=== PATIENT | female | born 1950 | race Hispanic/Latino ===

== ENCOUNTER 2017-05-22 18:13 | Emergency (ER) | payer MEDICARE ==
[~2017-05-22 18:13] MED LIST: AMLO5TAB2 PO; AMOX500C2 PO; ASPI-1181 PO; CHOL100034 PO; CLAR500T PO; DICY20TA11 PO; FURO20TA4 PO; INSLAN SQ; LISI40TA4 PO; LOVA20TA3 PO; PANT40TA25 PO
[2017-05-22 20:06] LABS: BASOPHILS % (AUTO) 0.3 % (0.0-5.0); EOSINOPHILS % (AUTO) 1.7 % (0.0-8.0); HEMATOCRIT 38.2 % (36-48); LYMPHOCYTES % (AUTO) 39.7 % (21.0-51.0); MEAN CORPUSCULAR HEMOGLOBIN 28.4 pg (27.0-33.0); MEAN CORPUSCULAR HGB CONC 34.3 g/dL (32.0-36.0); MEAN CORPUSCULAR VOLUME 82.9 fL (79-99); MONOCYTES % (AUTO) 5.6 % (3.0-13.0); NEUTROPHILS % (AUTO) 52.7 % (40.0-77.0); PLATELET COUNT (AUTO) 292 K/uL (130-400); RED CELL DISTRIBUTION WIDTH 13.2 % (11.0-15.5); WHITE BLOOD COUNT (AUTO) 10.1 K/uL (4.8-10.8)
[2017-05-22] MEDS ORDERED: ONDANSETRON ODT 4 MG TAB ONE (20:10)
[2017-05-22] MEDS ORDERED: BENZONATATE 100 MG CAPSULE PO ONE (20:11)
[2017-05-22 20:20] LABS: CREATININE 1.9 mg/dL (0.5-1.5); POTASSIUM 4.3 mmol/L (3.5-5.1)
[2017-05-22] MEDS ORDERED: INSULIN HUMULIN R 100 UNIT/ML 3ML ONE (21:20)
[2017-05-22] MEDS ORDERED: CLONIDINE HCL 0.1 MG TABLET ONE (21:57)
== END 2017-05-22 22:44 | disposition home or self-care (01) ==
LOC: EDH 18:13
DX: J20.9 Acute bronchitis, unspecified (principal); R51 Headache; J02.9 Acute pharyngitis, unspecified; N28.9 Disorder of kidney and ureter, unspecified; I25.10 Atherosclerotic heart disease of native coronary artery without angina pectoris; E11.9 Type 2 diabetes mellitus without complications; E78.5 Hyperlipidemia, unspecified; I10 Essential (primary) hypertension; Z72.0 Tobacco use
CPT/HCPCS: 36415; 70450; 71046; 80048; 82948; 85025; 87804 ×2; 96372; 99285; J1815

== ENCOUNTER 2017-05-26 15:18 | Inpatient (IN) | payer MEDICARE ==
[~2017-05-26] VITALS: Ht 152.4 cm; Wt 68.0 kg
[2017-05-26 15:49] LABS: BASOPHILS % (AUTO) 0.6 % (0.0-5.0); EOSINOPHILS % (AUTO) 1.8 % (0.0-8.0); HEMATOCRIT 36.9 % (36-48); LYMPHOCYTES % (AUTO) 34.6 % (21.0-51.0); MEAN CORPUSCULAR HEMOGLOBIN 27.9 pg (27.0-33.0); MEAN CORPUSCULAR HGB CONC 33.8 g/dL (32.0-36.0); MEAN CORPUSCULAR VOLUME 82.4 fL (79-99); MONOCYTES % (AUTO) 5.6 % (3.0-13.0); NEUTROPHILS % (AUTO) 57.4 % (40.0-77.0); PLATELET COUNT (AUTO) 283 K/uL (130-400); RED BLOOD CELL COUNT(AUTO) 4.48 MIL/uL (4.00-5.50); RED CELL DISTRIBUTION WIDTH 13.5 % (11.0-15.5); WHITE BLOOD COUNT (AUTO) 10.7 K/uL (4.8-10.8)
[2017-05-26] MEDS ORDERED: IPRATROPIUM/ALBUTEROL SULFATE 3 ML SOLUTION IH ONE (16:07)
[2017-05-26] MEDS ORDERED: ONDANSETRON HCL MDV 20ML 2 MG/ML VIAL ONE (16:08)
[2017-05-26] MEDS ORDERED: SODIUM CHLORIDE 0.9% 1000ML 1,000 ML IV ONE ×2 (16:08→17:01)
[2017-05-26] MEDS ORDERED: ACETAMINOPHEN 325 MG TAB ONE (16:08)
[2017-05-26] MEDS ORDERED: METHYLPREDNISOLONE SOD SUCC 40MG/ML 1ML ONE (16:08)
[2017-05-26 16:09] LABS: BILIRUBIN,TOTAL 0.1 mg/dL (0.2-1.0); CREATININE 2.5 mg/dL (0.5-1.5); POTASSIUM 5.3 mmol/L (3.5-5.1)
[2017-05-26] MEDS ORDERED: INSULIN HUMULIN R 100 UNIT/ML 3ML ONE ×2 (16:22→21:57)
[2017-05-26] MEDS ORDERED: AZITHROMYCIN 500MG+NS 250ML 250 ML IV ONE (17:01)
[2017-05-26 18:46] VITALS: BP 172/76
[2017-05-26 19:35] VITALS: BP 152/65
[2017-05-26] MEDS ORDERED: VALS320T16 PO (19:52)
[2017-05-26] MEDS ORDERED: GUAIFENESIN SUGAR-FREE 100 MG/5 ML UDCUP PO PRN (21:30)
[2017-05-26] MEDS ORDERED: ACETAMINOPHEN 325 MG TAB PO PRN (21:30)
[2017-05-26] MEDS ORDERED: LIDOCAINE HCL-MPF 1% 2ML VIAL IJ PRN (21:30)
[2017-05-26] MEDS ORDERED: POTASSIUM CHLORIDE 20 MEQ ERTAB PO PRN (21:30)
[2017-05-26] MEDS ORDERED: POTASSIUM CHLORIDE 20MEQ/100ML 100 ML IV PRN (21:30)
[2017-05-26] MEDS ORDERED: POTASSIUM CHLORIDE 10% ELIXIR 20 MEQ/15 ML UDCUP PO PRN (21:30)
[2017-05-26] MEDS ORDERED: GLUCAGON 1MG KIT 1 MG ML IM PRN (21:30)
[2017-05-26] MEDS ORDERED: DEXTROSE 50%-WATER 50 ML DISP.SYRIN IV PRN (21:30)
[2017-05-26] MEDS ORDERED: ONDANSETRON HCL MDV 20ML 2 MG/ML VIAL IVP PRN (21:30)
[2017-05-26] MEDS ORDERED: SODIUM CHLORIDE 0.9% 1000ML 1,000 ML IV SCH (21:30)
[2017-05-26] MEDS: INSULIN GLARGINE 100 UNITS/ML 10 ML VIAL SQ SCH (22:00)
[2017-05-26] MEDS: INSULIN HUMULIN R 100 UNIT/ML 3ML SQ SCH (22:00)
[2017-05-26 23:35] VITALS: BP 180/68
[2017-05-26] MEDS: IPRATROPIUM/ALBUTEROL SULFATE 3 ML SOLUTION IH SCH (23:45)
[2017-05-27 03:55] VITALS: BP 157/68
[2017-05-27] MEDS ORDERED: HYDRALAZINE HCL 20 MG/ML VIAL IV PRN ×2 (04:15→10:15)
[2017-05-27] MEDS: IPRATROPIUM/ALBUTEROL SULFATE 3 ML SOLUTION IH SCH ×3 (05:14→18:40)
[2017-05-27 06:08] LABS: HEMATOCRIT 33.9 % (36-48); MEAN CORPUSCULAR HEMOGLOBIN 29.1 pg (27.0-33.0); MEAN CORPUSCULAR HGB CONC 35.4 g/dL (32.0-36.0); MEAN CORPUSCULAR VOLUME 82.1 fL (79-99); PLATELET COUNT (AUTO) 269 K/uL (130-400); RED BLOOD CELL COUNT(AUTO) 4.12 MIL/uL (4.00-5.50); RED CELL DISTRIBUTION WIDTH 12.9 % (11.0-15.5)
[2017-05-27 06:23] LABS: HEMOGLOBIN A1C 10.2 % (4.0-6.0)
[2017-05-27 06:33] LABS: CREATININE 2.3 mg/dL (0.5-1.5); POTASSIUM 4.4 mmol/L (3.5-5.1)
[2017-05-27] MEDS: INSULIN HUMULIN R 100 UNIT/ML 3ML SQ SCH ×4 (07:05→21:27)
[2017-05-27] MEDS ORDERED: INSULIN R PO SS1 SQ SCH (07:30)
[2017-05-27 08:16] VITALS: BP 162/60
[2017-05-27] MEDS: METHYLPREDNISOLONE SOD SUCC 40MG/ML 1ML IVP SCH ×3 (08:56→21:19)
[2017-05-27] MEDS: FUROSEMIDE 20 MG TABLET PO SCH (08:56)
[2017-05-27] MEDS: ASPIRIN 81 MG EC TAB PO SCH (08:56)
[2017-05-27] MEDS ORDERED: VALSARTAN 320 MG PO SCH (09:00)
[2017-05-27] MEDS: ***HM***Cholecalciferol (Vitamin D3) 1,000 UNIT PO SCH (09:00)
[2017-05-27] MEDS: INSULIN GLARGINE 100 UNITS/ML 10 ML VIAL SQ SCH ×2 (09:02→17:30)
[2017-05-27] MEDS ORDERED: ONDANSETRON HCL 4 MG/2 ML VIAL IV PRN (10:15)
[2017-05-27] MEDS ORDERED: MORPHINE SULFATE 4 MG/1ML SYG IVP PRN (10:15)
[2017-05-27] MEDS ORDERED: LACTULOSE 20 GM/30 ML UDCUP PO PRN (10:15)
[2017-05-27] MEDS ORDERED: MORPHINE SULFATE 2 MG/ML 1ML SYG IVP PRN (10:15)
[2017-05-27] MEDS ORDERED: GUAIFENESIN-DM 200/20 MG 10 ML PO PRN (10:15)
[2017-05-27] MEDS ORDERED: ACETAMINOPHEN 325 MG TAB PO PRN ×2 (10:15)
[2017-05-27] MEDS ORDERED: MAG HYDROX/AL HYDROX/SIMETH ES 30 ML SUSP UDCUP PO PRN (10:15)
[2017-05-27] MEDS ORDERED: INSULIN GLARGINE 100 UNITS/ML 10 ML VIAL SQ ONE (10:15)
[2017-05-27] MEDS ORDERED: NITROGLYCERIN 0.4 MG SL TAB SL PRN (10:15)
[2017-05-27] MEDS ORDERED: ACETAMINOPHEN-CODEINE 300/30MG TAB PO PRN ×2 (10:15)
[2017-05-27 12:08] VITALS: BP 197/75
[2017-05-27] MEDS: SODIUM CHLORIDE 0.9% 1000ML 1,000 ML IV SCH ×4 (12:26→17:28)
[2017-05-27] MEDS ORDERED: AZITHROMYCIN 500MG+NS 250ML 250 ML IV SCH (16:00)
[2017-05-27 17:01] VITALS: BP 185/60
[2017-05-27 19:40] VITALS: BP 153/70
[2017-05-27] MEDS ORDERED: INSULIN GLARGINE 100 UNITS/ML 10 ML VIAL SQ SCH (21:00)
[2017-05-27] MEDS ORDERED: LOVASTATIN 20 MG PO SCH (21:00)
[2017-05-27] MEDS ORDERED: AMLODIPINE BESYLATE 5 MG TAB PO SCH (21:00)
[2017-05-27 23:40] VITALS: BP 173/70
[2017-05-28] MEDS: IPRATROPIUM/ALBUTEROL SULFATE 3 ML SOLUTION IH SCH ×3 (00:33→12:00)
[2017-05-28 03:40] VITALS: BP 148/69
[2017-05-28 05:26] LABS: CREATININE 1.8 mg/dL (0.5-1.5); POTASSIUM 4.2 mmol/L (3.5-5.1)
[2017-05-28 05:27] LABS: HEMATOCRIT 33.3 % (36-48); MEAN CORPUSCULAR HEMOGLOBIN 27.7 pg (27.0-33.0); MEAN CORPUSCULAR HGB CONC 34.4 g/dL (32.0-36.0); MEAN CORPUSCULAR VOLUME 80.5 fL (79-99); PLATELET COUNT (AUTO) 265 K/uL (130-400); RED BLOOD CELL COUNT(AUTO) 4.14 MIL/uL (4.00-5.50); RED CELL DISTRIBUTION WIDTH 13.3 % (11.0-15.5); WHITE BLOOD COUNT (AUTO) 18.8 K/uL (4.8-10.8)
[2017-05-28] MEDS: INSULIN HUMULIN R 100 UNIT/ML 3ML SQ SCH ×2 (07:47→11:30)
[2017-05-28 08:00] VITALS: BP 162/56
[2017-05-28] MEDS: ASPIRIN 81 MG EC TAB PO SCH (08:13)
[2017-05-28] MEDS: METHYLPREDNISOLONE SOD SUCC 40MG/ML 1ML IVP SCH (08:13)
[2017-05-28] MEDS: FUROSEMIDE 20 MG TABLET PO SCH (08:13)
[2017-05-28] MEDS: ***HM***Cholecalciferol (Vitamin D3) 1,000 UNIT PO SCH (08:17)
[2017-05-28] MEDS: INSULIN GLARGINE 100 UNITS/ML 10 ML VIAL SQ SCH (08:17)
[2017-05-28] MEDS ORDERED: ENOXAPARIN SODIUM 40 MG/0.4 ML SYRINGE SQ SCH (09:00)
[2017-05-28] MEDS ORDERED: ENOXAPARIN SODIUM 30 MG/0.3 ML SQ SCH (09:00)
[2017-05-28 11:30] VITALS: BP 172/78
== END 2017-05-28 12:05 | disposition home or self-care (01) | DRG 191 ==
LOC: EDH 15:18 → OBSVTOIN 16:40 → EDHIP 16:40 → 4CH 18:37
PROVIDERS: ADMIT Internal Medicine; ATTEND Internal Medicine
DX: J44.1 Chronic obstructive pulmonary disease with (acute) exacerbation (principal); E44.1 Mild protein-calorie malnutrition; E11.22 Type 2 diabetes mellitus with diabetic chronic kidney disease; E11.65 Type 2 diabetes mellitus with hyperglycemia; E78.5 Hyperlipidemia, unspecified; E86.0 Dehydration; F17.210 Nicotine dependence, cigarettes, uncomplicated; I12.9 Hypertensive chronic kidney disease with stage 1 through stage 4 chronic kidney disease, or unspecified chronic kidney disease; I25.10 Atherosclerotic heart disease of native coronary artery without angina pectoris; N18.9 Chronic kidney disease, unspecified
CPT/HCPCS: 36415; 71045; 71046; 80048; 80053; 82550; 82948; 83036; 83690; 83880; 84484; 85025; 85027; 87804; 93005; 94640; 94664; J0360; J0456; J1650; J1815; J2920; J7030

== ENCOUNTER 2017-12-26 07:22 | Emergency (ER) | payer MEDICARE ==
[~2017-12-26 07:22] MED LIST changes: -AMLO5TAB2 PO; +AMLO5TAB7 PO; -AMOX500C2 PO; -CLAR500T PO; -DICY20TA11 PO; -LISI40TA4 PO; -PANT40TA25 PO; +VALS320T16 PO
[2017-12-26] MEDS ORDERED: METHYLPREDNISOLONE SOD SUCC 125MG/2ML VIAL ONE (07:54)
[2017-12-26] MEDS ORDERED: IPRATROPIUM/ALBUTEROL SULFATE 3 ML SOLUTION IH ONE (07:59)
== END 2017-12-26 10:01 | disposition home or self-care (01) ==
LOC: EDH 07:22
DX: J40 Bronchitis, not specified as acute or chronic (principal); I25.10 Atherosclerotic heart disease of native coronary artery without angina pectoris; E78.5 Hyperlipidemia, unspecified; I10 Essential (primary) hypertension; E10.9 Type 1 diabetes mellitus without complications; Z72.0 Tobacco use
CPT/HCPCS: 71046; 94640; 96372; 99284; J2930

== ENCOUNTER 2018-09-08 00:22 | Emergency (ER) | payer MEDICARE ==
[~2018-09-08 00:22] MED LIST changes: -AMLO5TAB7 PO; +AMLO5TAB9 PO
[2018-09-08] MEDS ORDERED: PANTOPRAZOLE 40 MG/VIAL IVP ONE (00:23)
[2018-09-08 00:47] LABS: APPEARANCE,URINE Cloudy (CLEAR); BILIRUBIN,URINE Negative (NEGATIVE); COLOR,URINE Yellow (YELLOW); GLUCOSE, URINE (UA) 250 mg/dL (NEGATIVE); KETONES,URINE Negative (NEGATIVE); LEUKOCYTE ESTERASE ,URINE Large (NEGATIVE); NITRATE,URINE Negative (NEGATIVE); OCCULT BLOOD,URINE Trace (NEGATIVE); PROTEIN,URINE 300 mg/dL (NEGATIVE); UROBILINOGEN,URINE 0.2 mg/dL (0.2-1.0)
[2018-09-08] MEDS ORDERED: SODIUM CHLORIDE 0.9% 1000ML 1,000 ML IV ONE (00:49)
[2018-09-08] MEDS ORDERED: FAMOTIDINE/PF 20 MG/2 ML VIAL IV ONE (00:49)
[2018-09-08] MEDS ORDERED: ONDANSETRON HCL 4 MG/2 ML VIAL ONE (00:49)
[2018-09-08] MEDS ORDERED: METOCLOPRAMIDE 10 MG/2 ML VIAL ONE (00:49)
[2018-09-08] MEDS ORDERED: SODIUM CHLORIDE 0.9% 500ML 500 ML IV ONE (00:50)
[2018-09-08 00:55] LABS: BASOPHILS % (AUTO) 0.2 % (0.0-5.0); EOSINOPHILS % (AUTO) 0.7 % (0.0-8.0); HEMATOCRIT 35.7 % (36-48); LYMPHOCYTES % (AUTO) 39.3 % (21.0-51.0); MEAN CORPUSCULAR HEMOGLOBIN 28.3 pg (27.0-33.0); MEAN CORPUSCULAR HGB CONC 34.2 g/dL (32.0-36.0); MEAN CORPUSCULAR VOLUME 82.8 fL (79-99); NEUTROPHILS % (AUTO) 54.8 % (40.0-77.0); PLATELET COUNT (AUTO) 268 K/uL (130-400); RED BLOOD CELL COUNT(AUTO) 4.31 MIL/uL (4.00-5.50); RED CELL DISTRIBUTION WIDTH 12.9 % (11.0-15.5); WHITE BLOOD COUNT (AUTO) 12.3 K/uL (4.8-10.8)
[2018-09-08 00:58] LABS: BACTERIA,URINE Moderate /HPF (None Seen); MUCUS,URINE Few LPF (None Seen); RBC,URINE 0-1 /HPF (0-1); SQUAMOUS EPITHELIAL CELL,UR Few /HPF (0-2); WBC,URINE 51-100 /HPF (0-1)
[2018-09-08 01:02] LABS: CREATININE 2.2 mg/dL (0.5-1.5); POTASSIUM 4.7 mmol/L (3.5-5.1)
[2018-09-08 01:07] LABS: ALBUMIN 3.3 g/dL (3.5-5.0); BILIRUBIN,TOTAL 0.2 mg/dL (0.2-1.0); TOTAL PROTEIN, SERUM 7.3 g/dL (6.0-8.3)
[2018-09-08 01:08] LABS: INR 0.95 (0.85-1.15); PARTIAL THROMBOPLASTIN TIME 26.1 SEC (26.3-35.5)
[2018-09-08 01:14] LABS: B-TYPE NATRIURETIC PEPTIDE 87 pg/mL (0-100)
[2018-09-08] MEDS ORDERED: CEFTRIAXONE SODIUM 2 GM VIAL ONE (01:21)
[2018-09-08] MEDS ORDERED: LACTULOSE 20 GM/30 ML UDCUP ONE (01:39)
== END 2018-09-08 01:52 | disposition home or self-care (01) ==
LOC: EDH 00:22
DX: N39.0 Urinary tract infection, site not specified (principal); K59.00 Constipation, unspecified; R11.10 Vomiting, unspecified; E11.9 Type 2 diabetes mellitus without complications; E78.5 Hyperlipidemia, unspecified; I10 Essential (primary) hypertension; I25.10 Atherosclerotic heart disease of native coronary artery without angina pectoris; Z98.890 Other specified postprocedural states; Z72.0 Tobacco use
CPT/HCPCS: 36415; 74176; 80053; 81001; 82550; 83605; 83690; 83880; 84484; 85025; 85610; 85730; 93005; 96361; 96374; 96375 ×2; 99285; C9113; J0696; J2405; J2765; J3490; J7030; J7040

== ENCOUNTER 2018-10-31 14:54 | Emergency (ER) | payer MEDICARE ==
[~2018-10-31 14:54] MED LIST changes: +AEC81 PO; +AMOX500C2 PO; -ASPI-1181 PO; -CHOL100034 PO; +CLOP75TA32 PO; +INSNOV SQ; +LISI40TA4 PO; -LOVA20TA3 PO; +LOVA40TA2 PO; -VALS320T16 PO
[2018-10-31 16:07] LABS: APPEARANCE,URINE Clear (CLEAR); BILIRUBIN,URINE Negative (NEGATIVE); COLOR,URINE Yellow (YELLOW); GLUCOSE, URINE (UA) Negative (NEGATIVE); KETONES,URINE Negative (NEGATIVE); LEUKOCYTE ESTERASE ,URINE Trace (NEGATIVE); NITRATE,URINE Negative (NEGATIVE); OCCULT BLOOD,URINE Negative (NEGATIVE); PROTEIN,URINE 300 mg/dL (NEGATIVE); UROBILINOGEN,URINE 0.2 mg/dL (0.2-1.0)
[2018-10-31 16:36] LABS: BASOPHILS % (AUTO) 0.3 % (0.0-5.0); EOSINOPHILS % (AUTO) 1.1 % (0.0-8.0); HEMATOCRIT 31.5 % (36-48); LYMPHOCYTES % (AUTO) 34.6 % (21.0-51.0); MEAN CORPUSCULAR HEMOGLOBIN 28.8 pg (27.0-33.0); MEAN CORPUSCULAR HGB CONC 34.5 g/dL (32.0-36.0); MEAN CORPUSCULAR VOLUME 83.5 fL (79-99); MONOCYTES % (AUTO) 6.2 % (3.0-13.0); NEUTROPHILS % (AUTO) 57.8 % (40.0-77.0); PLATELET COUNT (AUTO) 267 K/uL (130-400); RED BLOOD CELL COUNT(AUTO) 3.77 MIL/uL (4.00-5.50); RED CELL DISTRIBUTION WIDTH 13.1 % (11.0-15.5); WHITE BLOOD COUNT (AUTO) 8.7 K/uL (4.8-10.8)
[2018-10-31 16:46] LABS: CREATININE 2.9 mg/dL (0.5-1.5); POTASSIUM 5.2 mmol/L (3.5-5.1)
[2018-10-31 16:49] LABS: BACTERIA,URINE Few /HPF (None Seen); RBC,URINE 0-1 /HPF (0-1)
[2018-10-31 16:50] LABS: SQUAMOUS EPITHELIAL CELL,UR Few /HPF (0-2)
[2018-10-31 16:51] LABS: ALBUMIN 3.6 g/dL (3.5-5.0); BILIRUBIN,TOTAL 0.3 mg/dL (0.2-1.0)
== END 2018-10-31 17:03 | disposition home or self-care (01) ==
LOC: EDH 14:54
DX: N39.0 Urinary tract infection, site not specified (principal); M79.3 Panniculitis, unspecified; N32.89 Other specified disorders of bladder; I25.10 Atherosclerotic heart disease of native coronary artery without angina pectoris; E78.5 Hyperlipidemia, unspecified; I10 Essential (primary) hypertension; E11.9 Type 2 diabetes mellitus without complications; Z87.891 Personal history of nicotine dependence; Z98.890 Other specified postprocedural states
CPT/HCPCS: 36415; 74176; 80053; 81001; 83690; 85025

== ENCOUNTER → 2019-01-27 | Outpatient (CLI) | payer MEDICARE | END | disposition home or self-care (01) | LOC: SHCH 14:39 | PROVIDERS: ATTEND Internal Medicine Cardiovascular Disease | DX: I51.7 Cardiomegaly (principal); I10 Essential (primary) hypertension | CPT/HCPCS: 93306 ==

== ENCOUNTER 2020-10-08 13:39 | Emergency (ER) | payer MEDICARE ==
[~2020-10-08] VITALS: Ht 154.9 cm; Wt 65.8 kg
[~2020-10-08 13:39] MED LIST changes: +AMLO-257 PO; -AMLO5TAB9 PO; -LISI40TA4 PO; +LISI40TA9 PO
[2020-10-08 13:41] VITALS: BP 166/71
[2020-10-08] MEDS ORDERED: MORPHINE 2 MG SYG IVP SCH (14:30)
[2020-10-08] MEDS ORDERED: ONDANSETRON 4MG INJ IVP SCH (14:30)
[2020-10-08 14:43] LABS: APPEARANCE,URINE CLOUDY (CLEAR); BASOPHILS % (AUTO) 0.3 % (0.0-5.0); BILIRUBIN,URINE NEGATIVE (NEGATIVE); COLOR,URINE YELLOW (YELLOW); EOSINOPHILS % (AUTO) 0.5 % (0.0-8.0); GLUCOSE, URINE (UA) NEGATIVE (NEGATIVE); HEMATOCRIT 26.8 % (36-48); KETONES,URINE 5 mg/dL (NEGATIVE); LEUKOCYTE ESTERASE ,URINE MODERATE (NEGATIVE); LYMPHOCYTES % (AUTO) 24.1 % (21.0-51.0); MEAN CORPUSCULAR HEMOGLOBIN 27.2 pg (27.0-33.0); MEAN CORPUSCULAR HGB CONC 32.5 g/dL (32.0-36.0); MEAN CORPUSCULAR VOLUME 83.8 fL (79-99); MONOCYTES % (AUTO) 5.5 % (3.0-13.0); NEUTROPHILS % (AUTO) 69.1 % (40.0-77.0); NITRATE,URINE NEGATIVE (NEGATIVE); OCCULT BLOOD,URINE TRACE-INTACT (NEGATIVE); PH,URINE 5.5 (5.0-8.0); PLATELET COUNT (AUTO) 338 K/uL (130-400); PROTEIN,URINE >=300 mg/dL (NEGATIVE); RED CELL DISTRIBUTION WIDTH 14.4 % (11.0-15.5); UROBILINOGEN,URINE 0.2 mg/dL (0.2-1.0); WHITE BLOOD COUNT (AUTO) 8.6 K/uL (4.8-10.8)
[2020-10-08 14:53] LABS: CARBON DIOXIDE 23 mmol/L (21-32); CHLORIDE 101 mmol/L (101-111); CREATININE 4.1 mg/dL (0.5-1.5); GLOMERULAR FILTR. RATE CALC 11 mL/min (>60); GLUCOSE,RANDOM 208 mg/dL (70-105); POTASSIUM 5.5 mmol/L (3.5-5.1); SODIUM SERUM 137 mmol/L (136-145); UREA NITROGEN, BLOOD 44 mg/dL (7-18)
[2020-10-08 14:57] LABS: ALANINE AMINOTRANSFERASE 10 U/L (12-78); ASPARTATE AMINOTRANSFERASE 16 U/L (10-37); BILIRUBIN,TOTAL 0.3 mg/dL (0.2-1.0); TOTAL PROTEIN, SERUM 7.3 g/dL (6.0-8.3)
[2020-10-08 14:58] LABS: LIPASE < 50 U/L (114-286)
[2020-10-08 15:04] LABS: BACTERIA,URINE Many /HPF (None Seen); MUCUS,URINE Few LPF (None Seen); SQUAMOUS EPITHELIAL CELL,UR Few /HPF (0-2); WBC,URINE 26-50 /HPF (0-1)
[2020-10-08] MEDS ORDERED: PHENAZOPYRIDINE HCL 200 MG TABLET PO ONE (15:30)
[2020-10-08] MEDS ORDERED: KAYEXALATE 15GM/60ML PO ONE (15:30)
[2020-10-08] MEDS ORDERED: CEFTRIAXONE 1G VIAL IVP ONE (15:30)
[2020-10-08] MEDS ORDERED: DIATR MEGLU/DIATRIZOATE SODIUM 30 ML BOTTLE ONE (16:01)
[2020-10-08 17:07] VITALS: BP 220/87
[2020-10-08] MEDS ORDERED: HYDRALAZINE 20MG/ML VIAL IV ONE (17:30)
[2020-10-08] MEDS ORDERED: MORPHINE 2 MG SYG IVP ONE (17:30)
[2020-10-08 18:39] VITALS: BP 190/69
[2020-10-08] MEDS ORDERED: CEPH500B PO (18:53)
[2020-10-08] MEDS ORDERED: DICY20TA2 PO (18:53)
[2020-10-08] MEDS ORDERED: ONDA4TAB10 PO (18:53)
[2020-10-08] MEDS ORDERED: HYDRALAZINE 20MG/ML VIAL IV SCH (19:00)
[2020-10-08] MEDS ORDERED: DICYCLOMINE HCL 10 MG/5 ML ML PO SCH (19:00)
[2020-10-08] MEDS ORDERED: DICYCLOMINE HCL 10 MG/5 ML ML PO ONE ×3 (19:00→20:01)
[2020-10-08] MEDS ORDERED: LIDOCAINE HCL 2% VISCOUS 15 ML UDCUP PO ONE (19:00)
[2020-10-08] MEDS ORDERED: MAG/ALUM/SIMETH 30 ML UDCUP PO ONE (19:00)
[2020-10-08] MEDS ORDERED: COMPOUND PO MISCELLANEOUS 1 EACH MISC MISC PRN (19:30)
[2020-10-08] MEDS ORDERED: LIDOCAINE HCL 2% VISCOUS 15 ML UDCUP ONE (19:59)
[2020-10-08] MEDS ORDERED: MAG/ALUM/SIMETH 30 ML UDCUP ONE (20:00)
[2020-10-08] MEDS ORDERED: LIDO 2% VISC 30ML+MAG/AL/SIMETH 30ML+DICYCLOMINE 20MG 10ML PO SCH ×3 (20:00)
[2020-10-08 20:22] VITALS: BP 177/62
== END 2020-10-08 20:35 | disposition home or self-care (01) ==
LOC: EDH 13:39
DX: N39.0 Urinary tract infection, site not specified (principal); K29.70 Gastritis, unspecified, without bleeding; I10 Essential (primary) hypertension; E11.9 Type 2 diabetes mellitus without complications; E78.5 Hyperlipidemia, unspecified; Z79.4 Long term (current) use of insulin; Z79.82 Long term (current) use of aspirin; Z79.899 Other long term (current) drug therapy; Z90.49 Acquired absence of other specified parts of digestive tract
CPT/HCPCS: 36415; 71045; 74176 ×2; 80053; 81001; 83690; 84484; 85025; 87077; 87088; 87186; 93005; 96374; 96375; 96376; 99285; J0360 ×2; J0696; J2405; Q9963

== ENCOUNTER 2020-10-12 21:01 | Inpatient (IN) | payer MEDICARE ==
[~2020-10-12] VITALS: Ht 154.9 cm; Wt 71.7 kg
[~2020-10-12 21:01] MED LIST changes: +CEPH500B PO; +DICY20TA2 PO; +ONDA4TAB10 PO
[2020-10-12 21:03] VITALS: BP 192/81
[2020-10-12 21:34] LABS: BASOPHILS % (AUTO) 0.4 % (0.0-5.0); EOSINOPHILS % (AUTO) 0.6 % (0.0-8.0); HEMATOCRIT 27.4 % (36-48); LYMPHOCYTES % (AUTO) 18.2 % (21.0-51.0); MEAN CORPUSCULAR HEMOGLOBIN 27.2 pg (27.0-33.0); MEAN CORPUSCULAR HGB CONC 32.1 g/dL (32.0-36.0); MEAN CORPUSCULAR VOLUME 84.8 fL (79-99); MONOCYTES % (AUTO) 5.2 % (3.0-13.0); NEUTROPHILS % (AUTO) 74.7 % (40.0-77.0); PLATELET COUNT (AUTO) 356 K/uL (130-400); RED BLOOD CELL COUNT(AUTO) 3.23 MIL/uL (4.00-5.50); RED CELL DISTRIBUTION WIDTH 14.5 % (11.0-15.5); WHITE BLOOD COUNT (AUTO) 9.7 K/uL (4.8-10.8)
[2020-10-12 21:49] LABS: BILIRUBIN,TOTAL 0.3 mg/dL (0.2-1.0); TOTAL PROTEIN, SERUM 7.2 g/dL (6.0-8.3)
[2020-10-12] MEDS ORDERED: NITROGLYCERIN 1GM OINT 1 INCH/1GM TD ONE (22:30)
[2020-10-12] MEDS ORDERED: FUROSEMIDE 40MG VIAL IV ONE (22:30)
[2020-10-12] MEDS ORDERED: AZITHROMYCIN 250 MG TABLET PO ONE (22:30)
[2020-10-12] MEDS ORDERED: CEFTRIAXONE 1G VIAL IVP ONE (22:30)
[2020-10-12 22:36] LABS: APPEARANCE,URINE Cloudy (CLEAR); BILIRUBIN,URINE Negative (NEGATIVE); COLOR,URINE Yellow (YELLOW); GLUCOSE, URINE (UA) Negative (NEGATIVE); KETONES,URINE Trace mg/dL (NEGATIVE); LEUKOCYTE ESTERASE ,URINE Moderate (NEGATIVE); NITRATE,URINE Negative (NEGATIVE); OCCULT BLOOD,URINE Large (NEGATIVE); PH,URINE 5.5 (5.0-8.0); PROTEIN,URINE 300 mg/dL (NEGATIVE); UROBILINOGEN,URINE 0.2 mg/dL (0.2-1.0)
[2020-10-12] MEDS ORDERED: ONDANSETRON 4MG INJ IV PRN (23:00)
[2020-10-12] MEDS ORDERED: LACTULOSE 20 GM/30 ML UDCUP PO PRN (23:00)
[2020-10-12 23:04] LABS: RBC,URINE 26-50 /HPF (0-1)
[2020-10-12 23:05] LABS: BACTERIA,URINE Many /HPF (None Seen); SQUAMOUS EPITHELIAL CELL,UR Few /HPF (0-2); WBC,URINE 51-100 /HPF (0-1)
[2020-10-12 23:25] LABS: HEMOGLOBIN A1C 7.9 % (4.0-6.0)
[2020-10-12 23:26] LABS: MAGNESIUM 2.9 mg/dL (1.80-2.40)
[2020-10-12] MEDS: CEFTRIAXONE 1G VIAL IVP SCH (23:30)
[2020-10-13] VITALS (13 sets, daily range): BP systolic 156–203; BP diastolic 39–111
[2020-10-13] MEDS ORDERED: FUROSEMIDE 40MG VIAL ONE (00:06)
[2020-10-13] MEDS: METOPROLOL TARTRATE 25 MG TAB PO SCH ×3 (00:21→21:20)
[2020-10-13] MEDS: ATORVASTATIN 20 MG TABLET PO SCH ×2 (00:21→21:20)
[2020-10-13] MEDS: ASPIRIN 81 MG EC TAB PO SCH ×2 (00:21→08:30)
[2020-10-13] MEDS ORDERED: NITROGLYCERIN 1GM OINT 1 INCH/1GM TD ONE (00:26)
[2020-10-13] MEDS ORDERED: AZITHROMYCIN 250 MG TABLET PO ONE (00:26)
[2020-10-13 06:28] LABS: BASOPHILS % (AUTO) 0.3 % (0.0-5.0); EOSINOPHILS % (AUTO) 0.9 % (0.0-8.0); HEMATOCRIT 28.4 % (36-48); LYMPHOCYTES % (AUTO) 16.4 % (21.0-51.0); MEAN CORPUSCULAR HEMOGLOBIN 26.6 pg (27.0-33.0); MEAN CORPUSCULAR HGB CONC 31.3 g/dL (32.0-36.0); MEAN CORPUSCULAR VOLUME 84.8 fL (79-99); MONOCYTES % (AUTO) 4.5 % (3.0-13.0); NEUTROPHILS % (AUTO) 76.9 % (40.0-77.0); PLATELET COUNT (AUTO) 407 K/uL (130-400); RED BLOOD CELL COUNT(AUTO) 3.35 MIL/uL (4.00-5.50); RED CELL DISTRIBUTION WIDTH 14.5 % (11.0-15.5); WHITE BLOOD COUNT (AUTO) 9.8 K/uL (4.8-10.8)
[2020-10-13 06:46] LABS: POTASSIUM 5.6 mmol/L (3.5-5.1)
[2020-10-13] MEDS: INSULIN HUMULIN R 100 UNIT/ML 3ML SQ SCH ×4 (08:30→21:20)
[2020-10-13] MEDS: PANTOPRAZOLE 40 MG TAB DR PO SCH (08:30)
[2020-10-13] MEDS: FUROSEMIDE 40MG VIAL IVP SCH ×2 (08:30→21:20)
[2020-10-13] MEDS: HYDRALAZINE 20MG/ML VIAL IV PRN ×2 (12:53→22:16)
[2020-10-13] MEDS ORDERED: KAYEXALATE 15GM/60ML PO ONE (13:00)
[2020-10-13] MEDS: CEFTRIAXONE 1G VIAL IVP SCH (23:36)
[2020-10-14] VITALS (8 sets, daily range): BP systolic 176–198; BP diastolic 49–74
[2020-10-14] MEDS: HYDRALAZINE 20MG/ML VIAL IV PRN ×2 (04:41→20:29)
[2020-10-14 05:26] LABS: BASOPHILS % (AUTO) 0.4 % (0.0-5.0); EOSINOPHILS % (AUTO) 1.6 % (0.0-8.0); HEMATOCRIT 28.7 % (36-48); LYMPHOCYTES % (AUTO) 19.2 % (21.0-51.0); NEUTROPHILS % (AUTO) 73.4 % (40.0-77.0); PLATELET COUNT (AUTO) 437 K/uL (130-400); RED CELL DISTRIBUTION WIDTH 14.5 % (11.0-15.5); WHITE BLOOD COUNT (AUTO) 11.2 K/uL (4.8-10.8)
[2020-10-14 05:44] LABS: MAGNESIUM 2.7 mg/dL (1.80-2.40); PHOSPHORUS 3.8 mg/dL (2.5-4.9); POTASSIUM 4.5 mmol/L (3.5-5.1)
[2020-10-14 05:48] LABS: % IRON SATURATION 18.8 % (22-44)
[2020-10-14 05:57] LABS: BILIRUBIN,TOTAL 0.2 mg/dL (0.2-1.0)
[2020-10-14] MEDS: INSULIN HUMULIN R 100 UNIT/ML 3ML SQ SCH ×4 (06:32→20:31)
[2020-10-14] MEDS ORDERED: 0.9% NACL 250ML IVPB SCH (08:30)
[2020-10-14] MEDS ORDERED: DOXYCYCLINE 100MG IVPB (VIAL) IVPB SCH (08:30)
[2020-10-14] MEDS ORDERED: AMLODIPINE 5 MG TAB PO SCH (09:00)
[2020-10-14] MEDS: ASPIRIN 81 MG EC TAB PO SCH (09:30)
[2020-10-14] MEDS: HYDRALAZINE 25MG TABLET PO SCH ×3 (09:31→20:30)
[2020-10-14] MEDS: METOPROLOL TARTRATE 25 MG TAB PO SCH ×2 (09:31→20:30)
[2020-10-14] MEDS: Vitamin B Complex/Vit C/Folic Acid PO SCH (09:31)
[2020-10-14] MEDS: DOXYCYCLINE 100MG+NS 250ML 250 ML IV SCH ×2 (09:32→20:29)
[2020-10-14] MEDS: PANTOPRAZOLE 40 MG TAB DR PO SCH (09:32)
[2020-10-14] MEDS: FUROSEMIDE 40MG VIAL IVP SCH ×3 (09:42→20:30)
[2020-10-14] MEDS ORDERED: COMPOUND IV MISC 1 EACH IVSOLN MISC PRN (13:30)
[2020-10-14] MEDS ORDERED: PHARMACY COMMUNICATION MISC SCH (13:30)
[2020-10-14] MEDS: IRON SUCROSE COMPLEX 300 MG in 0.9%NACL 50ML 50 ML IV SCH (16:06)
[2020-10-14] MEDS ORDERED: POLYETHYLENE GLYCOL 3350 17 GM POWD.PACK PO ONE (17:00)
[2020-10-14] MEDS ORDERED: AMLODIPINE 5 MG TAB PO ONE (17:00)
[2020-10-14 18:06] LABS: INR 1.12 (0.85-1.15); PROTHROMBIN TIME 12.1 SEC (9.6-11.6)
[2020-10-14 18:07] LABS: PARTIAL THROMBOPLASTIN TIME 32.8 SEC (26.3-35.5)
[2020-10-14] MEDS: ATORVASTATIN 10 MG TABLET PO SCH (20:31)
[2020-10-14] MEDS: DOCUSATE SODIUM 100 MG CAP PO SCH (20:31)
[2020-10-15] VITALS (18 sets, daily range): BP systolic 109–189; BP diastolic 50–98
[2020-10-15] MEDS: CEFTRIAXONE 1G VIAL IVP SCH (00:24)
[2020-10-15 04:57] LABS: HEMATOCRIT 28.6 % (36-48); MEAN CORPUSCULAR HEMOGLOBIN 26.9 pg (27.0-33.0); MEAN CORPUSCULAR HGB CONC 31.5 g/dL (32.0-36.0); MEAN CORPUSCULAR VOLUME 85.6 fL (79-99); RED BLOOD CELL COUNT(AUTO) 3.34 MIL/uL (4.00-5.50); RED CELL DISTRIBUTION WIDTH 14.4 % (11.0-15.5); WHITE BLOOD COUNT (AUTO) 11.8 K/uL (4.8-10.8)
[2020-10-15 05:08] LABS: CREATININE 4.2 mg/dL (0.5-1.5); POTASSIUM 3.9 mmol/L (3.5-5.1)
[2020-10-15] MEDS: HYDRALAZINE 20MG/ML VIAL IV PRN ×2 (05:21→21:36)
[2020-10-15] MEDS: INSULIN HUMULIN R 100 UNIT/ML 3ML SQ SCH ×4 (06:33→21:00)
[2020-10-15] MEDS ORDERED: HEPARIN 1,000 UNIT VIAL ONE (11:48)
[2020-10-15] MEDS ORDERED: LIDOCAINE HCL 1% MDV 50ML VIAL ONE (11:49)
[2020-10-15] MEDS: FUROSEMIDE 40MG VIAL IVP SCH ×3 (12:49→21:34)
[2020-10-15] MEDS: HYDRALAZINE 25MG TABLET PO SCH ×3 (12:55→21:34)
[2020-10-15] MEDS: METOPROLOL TARTRATE 25 MG TAB PO SCH ×2 (12:55→21:35)
[2020-10-15] MEDS: DOCUSATE SODIUM 100 MG CAP PO SCH ×2 (12:55→21:34)
[2020-10-15] MEDS: Vitamin B Complex/Vit C/Folic Acid PO SCH (12:55)
[2020-10-15] MEDS: AMLODIPINE 5 MG TAB PO SCH (12:56)
[2020-10-15] MEDS: POLYETHYLENE GLYCOL 3350 17 GM POWD.PACK PO SCH (12:57)
[2020-10-15] MEDS: IRON SUCROSE COMPLEX 300 MG in 0.9%NACL 50ML 50 ML IV SCH (12:57)
[2020-10-15] MEDS: PANTOPRAZOLE 40 MG TAB DR PO SCH (12:58)
[2020-10-15] MEDS ORDERED: HEPARIN 5,000 UNIT VIAL SQ PRN (13:00)
[2020-10-15 13:23] LABS: HEMOGLOBIN A1C 7.9 % (4.0-6.0)
[2020-10-15] MEDS ORDERED: 0.9%NACL 1000ML 1,000 ML IV ONE (13:27)
[2020-10-15] MEDS ORDERED: EPOETIN ALFA-EPBX (ESRD) 10,000 UNIT/ML VIAL SQ SCH (14:00)
[2020-10-15 16:29] LABS: % IRON SATURATION 52.6 % (22-44)
[2020-10-15] MEDS: ATORVASTATIN 10 MG TABLET PO SCH (21:35)
[2020-10-16] VITALS (18 sets, daily range): BP systolic 117–174; BP diastolic 40–74
[2020-10-16 05:15] LABS: HEMATOCRIT 28.7 % (36-48); MEAN CORPUSCULAR HEMOGLOBIN 26.6 pg (27.0-33.0); MEAN CORPUSCULAR VOLUME 85.7 fL (79-99); RED BLOOD CELL COUNT(AUTO) 3.35 MIL/uL (4.00-5.50); RED CELL DISTRIBUTION WIDTH 14.3 % (11.0-15.5)
[2020-10-16 05:20] LABS: CREATININE 3.3 mg/dL (0.5-1.5)
[2020-10-16] MEDS: HYDRALAZINE 20MG/ML VIAL IV PRN (05:28)
[2020-10-16] MEDS: INSULIN HUMULIN R 100 UNIT/ML 3ML SQ SCH ×4 (07:30→21:27)
[2020-10-16] MEDS ORDERED: EPOETIN ALFA-EPBX (ESRD) 10,000 UNIT/ML VIAL SQ SCH (08:00)
[2020-10-16] MEDS ORDERED: 0.9%NACL 1000ML 1,000 ML IV PRN (09:30)
[2020-10-16 09:51] LABS: CREATININE 3.3 mg/dL (0.5-1.5)
[2020-10-16] MEDS: ACETAMINOPHEN 325 MG TAB PO PRN ×2 (10:32→18:44)
[2020-10-16] MEDS: PANTOPRAZOLE 40 MG TAB DR PO SCH (10:32)
[2020-10-16] MEDS: DOCUSATE SODIUM 100 MG CAP PO SCH ×2 (10:32→21:25)
[2020-10-16] MEDS: IRON SUCROSE COMPLEX 300 MG in 0.9%NACL 50ML 50 ML IV SCH (11:22)
[2020-10-16] MEDS: MEROPENEM 500 MG VIAL IVP SCH (11:22)
[2020-10-16] MEDS: METOPROLOL TARTRATE 25 MG TAB PO SCH ×2 (11:23→21:25)
[2020-10-16] MEDS: AMLODIPINE 5 MG TAB PO SCH (11:23)
[2020-10-16] MEDS: Vitamin B Complex/Vit C/Folic Acid PO SCH (11:23)
[2020-10-16] MEDS: POLYETHYLENE GLYCOL 3350 17 GM POWD.PACK PO SCH (11:24)
[2020-10-16] MEDS: HYDRALAZINE 25MG TABLET PO SCH ×3 (11:26→21:26)
[2020-10-16] MEDS: LACTULOSE 20 GM/30 ML UDCUP PO SCH ×2 (13:48→21:00)
[2020-10-16] MEDS ORDERED: FLUCONAZOLE 100 MG TAB PO ONE (16:00)
[2020-10-16] MEDS: CLOTRIMAZOLE 10 MG TROCHE MM SCH (18:35)
[2020-10-16] MEDS: ATORVASTATIN 10 MG TABLET PO SCH (21:25)
[2020-10-17] VITALS (22 sets, daily range): BP systolic 132–185; BP diastolic 39–110
[2020-10-17] MEDS ORDERED: HYDROXYZINE 25 MG TABLET PO ONE (00:30)
[2020-10-17] MEDS: CLOTRIMAZOLE 10 MG TROCHE MM SCH ×5 (00:40→23:03)
[2020-10-17 05:16] LABS: HEMATOCRIT 26.5 % (36-48); MEAN CORPUSCULAR HEMOGLOBIN 26.9 pg (27.0-33.0); MEAN CORPUSCULAR HGB CONC 31.3 g/dL (32.0-36.0); MEAN CORPUSCULAR VOLUME 85.8 fL (79-99); PLATELET COUNT (AUTO) 317 K/uL (130-400); RED BLOOD CELL COUNT(AUTO) 3.09 MIL/uL (4.00-5.50); RED CELL DISTRIBUTION WIDTH 14.5 % (11.0-15.5); WHITE BLOOD COUNT (AUTO) 12.3 K/uL (4.8-10.8)
[2020-10-17] MEDS: INSULIN HUMULIN R 100 UNIT/ML 3ML SQ SCH ×4 (05:49→21:00)
[2020-10-17 08:32] LABS: CREATININE 3.1 mg/dL (0.5-1.5); POTASSIUM 3.7 mmol/L (3.5-5.1)
[2020-10-17] MEDS: DOCUSATE SODIUM 100 MG CAP PO SCH (09:00)
[2020-10-17] MEDS: POLYETHYLENE GLYCOL 3350 17 GM POWD.PACK PO SCH (09:00)
[2020-10-17] MEDS: LACTULOSE 20 GM/30 ML UDCUP PO SCH (09:00)
[2020-10-17] MEDS: MEROPENEM 500 MG VIAL IVP SCH (09:02)
[2020-10-17] MEDS: METOPROLOL TARTRATE 25 MG TAB PO SCH ×2 (09:03→22:11)
[2020-10-17] MEDS: AMLODIPINE 5 MG TAB PO SCH (09:03)
[2020-10-17] MEDS: PANTOPRAZOLE 40 MG TAB DR PO SCH (09:03)
[2020-10-17] MEDS: Vitamin B Complex/Vit C/Folic Acid PO SCH (09:03)
[2020-10-17] MEDS: HYDRALAZINE 25MG TABLET PO SCH ×3 (09:03→22:11)
[2020-10-17] MEDS: IRON SUCROSE COMPLEX 300 MG in 0.9%NACL 50ML 50 ML IV SCH (09:14)
[2020-10-17 09:35] LABS: LYMPHOCYTES % (MANUAL) 17 % (22-44); METAMYELOCYTES % 1 % (0-0); MONOCYTES % (MANUAL) 16 % (2-9); REACTIVE LYMPHOCYTES 1 % (0-0); SEGMENTED NEUTROPHILS % 65 % (40-70)
[2020-10-17 09:36] LABS: PLATELET MORPHOLOGY COMMENT ADEQUATE
[2020-10-17 17:09] LABS: HEPATITIS Bs ANTIGEN SCREEN P Negative (Negative)
[2020-10-17] MEDS ORDERED: HEPARIN 5,000 UNIT VIAL IV SCH (17:30)
[2020-10-17] MEDS ORDERED: INSULIN GLARGINE 100 UNITS/ML 10 ML VIAL SQ SCH (21:00)
[2020-10-17] MEDS: ATORVASTATIN 10 MG TABLET PO SCH (22:11)
[2020-10-17] MEDS: TEMAZEPAM 7.5 MG CAPSULE PO SCH (22:11)
[2020-10-18 03:28] VITALS: BP 179/64
[2020-10-18] MEDS: CLOTRIMAZOLE 10 MG TROCHE MM SCH ×4 (06:30→23:38)
[2020-10-18] MEDS: INSULIN HUMULIN R 100 UNIT/ML 3ML SQ SCH ×4 (06:31→20:48)
[2020-10-18 06:52] LABS: BASOPHILS % (AUTO) 0.4 % (0.0-5.0); EOSINOPHILS % (AUTO) 1.3 % (0.0-8.0); HEMATOCRIT 26.6 % (36-48); LYMPHOCYTES % (AUTO) 20.5 % (21.0-51.0); MEAN CORPUSCULAR HEMOGLOBIN 26.6 pg (27.0-33.0); MEAN CORPUSCULAR HGB CONC 30.5 g/dL (32.0-36.0); MEAN CORPUSCULAR VOLUME 87.5 fL (79-99); MONOCYTES % (AUTO) 8.7 % (3.0-13.0); NEUTROPHILS % (AUTO) 66.2 % (40.0-77.0); NUCLEATED RED BLOOD CELLS 1.1 % (0.0-0.19); PLATELET COUNT (AUTO) 277 K/uL (130-400); RED BLOOD CELL COUNT(AUTO) 3.04 MIL/uL (4.00-5.50); RED CELL DISTRIBUTION WIDTH 14.6 % (11.0-15.5)
[2020-10-18 07:01] LABS: CREATININE 2.8 mg/dL (0.5-1.5); POTASSIUM 3.5 mmol/L (3.5-5.1)
[2020-10-18 07:35] VITALS: BP 121/66
[2020-10-18] MEDS: HYDRALAZINE 25MG TABLET PO SCH ×3 (09:36→20:46)
[2020-10-18] MEDS: AMLODIPINE 5 MG TAB PO SCH (09:36)
[2020-10-18] MEDS: MEROPENEM 500 MG VIAL IVP SCH (09:36)
[2020-10-18] MEDS: METOPROLOL TARTRATE 25 MG TAB PO SCH ×2 (09:36→20:47)
[2020-10-18] MEDS: PANTOPRAZOLE 40 MG TAB DR PO SCH (09:36)
[2020-10-18] MEDS: Vitamin B Complex/Vit C/Folic Acid PO SCH (09:36)
[2020-10-18] MEDS: IRON SUCROSE COMPLEX 300 MG in 0.9%NACL 50ML 50 ML IV SCH (09:57)
[2020-10-18 11:35] VITALS: BP 164/57
[2020-10-18 15:35] VITALS: BP 155/67
[2020-10-18 20:20] VITALS: BP 113/56
[2020-10-18] MEDS: TEMAZEPAM 7.5 MG CAPSULE PO SCH (20:46)
[2020-10-18] MEDS: ATORVASTATIN 10 MG TABLET PO SCH (20:46)
[2020-10-18] MEDS: INSULIN GLARGINE 100 UNITS/ML 10 ML VIAL SQ SCH (20:49)
[2020-10-18 23:35] VITALS: BP 148/49
[2020-10-19] VITALS (20 sets, daily range): BP systolic 12–172; BP diastolic 51–103
[2020-10-19] MEDS: CLOTRIMAZOLE 10 MG TROCHE MM SCH ×3 (05:37→17:37)
[2020-10-19] MEDS: INSULIN HUMULIN R 100 UNIT/ML 3ML SQ SCH ×4 (06:34→21:14)
[2020-10-19 07:30] LABS: BASOPHILS % (AUTO) 0.4 % (0.0-5.0); EOSINOPHILS % (AUTO) 1.4 % (0.0-8.0); HEMATOCRIT 25.2 % (36-48); LYMPHOCYTES % (AUTO) 23.1 % (21.0-51.0); MEAN CORPUSCULAR HEMOGLOBIN 26.7 pg (27.0-33.0); MEAN CORPUSCULAR VOLUME 86.3 fL (79-99); MONOCYTES % (AUTO) 9.8 % (3.0-13.0); NUCLEATED RED BLOOD CELLS 0.4 % (0.0-0.19); PLATELET COUNT (AUTO) 270 K/uL (130-400); RED BLOOD CELL COUNT(AUTO) 2.92 MIL/uL (4.00-5.50); RED CELL DISTRIBUTION WIDTH 14.6 % (11.0-15.5); WHITE BLOOD COUNT (AUTO) 10.2 K/uL (4.8-10.8)
[2020-10-19 07:39] LABS: CREATININE 2.5 mg/dL (0.5-1.5); POTASSIUM 3.3 mmol/L (3.5-5.1)
[2020-10-19] MEDS: HYDRALAZINE 25MG TABLET PO SCH ×3 (09:00→21:09)
[2020-10-19] MEDS: AMLODIPINE 5 MG TAB PO SCH (09:00)
[2020-10-19] MEDS: METOPROLOL TARTRATE 25 MG TAB PO SCH ×2 (09:44→21:09)
[2020-10-19] MEDS: Vitamin B Complex/Vit C/Folic Acid PO SCH (09:45)
[2020-10-19] MEDS: PANTOPRAZOLE 40 MG TAB DR PO SCH (09:45)
[2020-10-19] MEDS: MEROPENEM 500 MG VIAL IVP SCH (09:45)
[2020-10-19] MEDS: IRON SUCROSE COMPLEX 300 MG in 0.9%NACL 50ML 50 ML IV SCH (09:51)
[2020-10-19] MEDS ORDERED: IPRATROPIUM/ALBUTEROL SULFATE 3 ML SOLUTION IH PRN (18:30)
[2020-10-19] MEDS: HYDRALAZINE 20MG/ML VIAL IV PRN (21:09)
[2020-10-19] MEDS: ATORVASTATIN 10 MG TABLET PO SCH (21:09)
[2020-10-19] MEDS: TEMAZEPAM 7.5 MG CAPSULE PO SCH (21:09)
[2020-10-19] MEDS: INSULIN GLARGINE 100 UNITS/ML 10 ML VIAL SQ SCH (21:12)
[2020-10-20] VITALS: BP 151/54
[2020-10-20] MEDS: CLOTRIMAZOLE 10 MG TROCHE MM SCH ×5 (00:10→23:27)
[2020-10-20 04:00] VITALS: BP 150/44
[2020-10-20] MEDS: LACTULOSE 20 GM/30 ML UDCUP PO PRN (05:07)
[2020-10-20] MEDS: ACETAMINOPHEN 325 MG TAB PO PRN (05:07)
[2020-10-20 06:02] LABS: BASOPHILS % (AUTO) 0.3 % (0.0-5.0); EOSINOPHILS % (AUTO) 2.3 % (0.0-8.0); HEMATOCRIT 25.6 % (36-48); LYMPHOCYTES % (AUTO) 22.9 % (21.0-51.0); MEAN CORPUSCULAR HEMOGLOBIN 27.1 pg (27.0-33.0); MEAN CORPUSCULAR HGB CONC 30.9 g/dL (32.0-36.0); MEAN CORPUSCULAR VOLUME 87.7 fL (79-99); MONOCYTES % (AUTO) 9.3 % (3.0-13.0); NEUTROPHILS % (AUTO) 64.3 % (40.0-77.0); NUCLEATED RED BLOOD CELLS 0.3 % (0.0-0.19); PLATELET COUNT (AUTO) 236 K/uL (130-400); RED BLOOD CELL COUNT(AUTO) 2.92 MIL/uL (4.00-5.50); RED CELL DISTRIBUTION WIDTH 14.7 % (11.0-15.5); WHITE BLOOD COUNT (AUTO) 10.1 K/uL (4.8-10.8)
[2020-10-20 06:14] LABS: CREATININE 3.5 mg/dL (0.5-1.5); PHOSPHORUS 2.4 mg/dL (2.5-4.9); POTASSIUM 3.9 mmol/L (3.5-5.1)
[2020-10-20 06:17] LABS: INR 1.12 (0.85-1.15); PROTHROMBIN TIME 12.1 SEC (9.6-11.6)
[2020-10-20 06:18] LABS: PARTIAL THROMBOPLASTIN TIME 33.7 SEC (26.3-35.5)
[2020-10-20] MEDS: INSULIN HUMULIN R 100 UNIT/ML 3ML SQ SCH ×4 (06:31→20:48)
[2020-10-20 08:18] VITALS: BP 126/66
[2020-10-20] MEDS: PANTOPRAZOLE 40 MG TAB DR PO SCH (09:00)
[2020-10-20] MEDS: METOPROLOL TARTRATE 25 MG TAB PO SCH ×2 (09:00→20:48)
[2020-10-20] MEDS: AMLODIPINE 5 MG TAB PO SCH (09:00)
[2020-10-20] MEDS: Vitamin B Complex/Vit C/Folic Acid PO SCH (09:00)
[2020-10-20] MEDS: FUROSEMIDE 80 MG TABLET PO SCH ×2 (09:00→14:57)
[2020-10-20] MEDS: HYDRALAZINE 25MG TABLET PO SCH ×3 (09:00→20:48)
[2020-10-20] MEDS ORDERED: HYDROMORPHONE 0.5 MG SYG (0.5MG/0.5ML) IVP SCH ×2 (10:00→10:30)
[2020-10-20] MEDS ORDERED: LISINOPRIL 20 MG TABLET PO SCH (10:00)
[2020-10-20] MEDS: MEROPENEM 500 MG VIAL IVP SCH (10:21)
[2020-10-20] MEDS: IRON SUCROSE COMPLEX 300 MG in 0.9%NACL 50ML 50 ML IV SCH (10:22)
[2020-10-20] MEDS: NICOTINE 14 MG/ 24 HR PATCH TD SCH (10:25)
[2020-10-20 13:50] VITALS: BP 142/88
[2020-10-20] MEDS ORDERED: POLYETHYLENE GLYCOL 3350 17 GM POWD.PACK PO ONE (15:00)
[2020-10-20] MEDS ORDERED: POLYETHYLENE GLYCOL 3350 17 GM POWD.PACK ONE (16:44)
[2020-10-20 17:33] VITALS: BP 109/63
[2020-10-20 20:00] VITALS: BP 164/58
[2020-10-20] MEDS: TEMAZEPAM 7.5 MG CAPSULE PO SCH (20:48)
[2020-10-20] MEDS: ATORVASTATIN 10 MG TABLET PO SCH (20:48)
[2020-10-20] MEDS: INSULIN GLARGINE 100 UNITS/ML 10 ML VIAL SQ SCH (20:50)
[2020-10-21] VITALS (28 sets, daily range): BP systolic 85–182; BP diastolic 40–107
[2020-10-21] MEDS: CLOTRIMAZOLE 10 MG TROCHE MM SCH ×3 (05:21→18:10)
[2020-10-21] MEDS: ACETAMINOPHEN 325 MG TAB PO PRN (06:16)
[2020-10-21 06:37] LABS: BASOPHILS % (AUTO) 0.4 % (0.0-5.0); EOSINOPHILS % (AUTO) 2.5 % (0.0-8.0); HEMATOCRIT 25.1 % (36-48); LYMPHOCYTES % (AUTO) 27.3 % (21.0-51.0); MEAN CORPUSCULAR HEMOGLOBIN 27.2 pg (27.0-33.0); MEAN CORPUSCULAR HGB CONC 31.5 g/dL (32.0-36.0); MEAN CORPUSCULAR VOLUME 86.6 fL (79-99); MONOCYTES % (AUTO) 9.2 % (3.0-13.0); NEUTROPHILS % (AUTO) 59.8 % (40.0-77.0); NUCLEATED RED BLOOD CELLS 0.4 % (0.0-0.19); PLATELET COUNT (AUTO) 222 K/uL (130-400); WHITE BLOOD COUNT (AUTO) 9.2 K/uL (4.8-10.8)
[2020-10-21 06:52] LABS: CREATININE 4.7 mg/dL (0.5-1.5); POTASSIUM 4.2 mmol/L (3.5-5.1)
[2020-10-21 07:03] LABS: B-TYPE NATRIURETIC PEPTIDE 2080 pg/mL (0-100)
[2020-10-21] MEDS: INSULIN HUMULIN R 100 UNIT/ML 3ML SQ SCH ×4 (07:30→21:00)
[2020-10-21] MEDS: METOPROLOL TARTRATE 25 MG TAB PO SCH ×2 (08:33→21:04)
[2020-10-21] MEDS: NICOTINE 14 MG/ 24 HR PATCH TD SCH (08:33)
[2020-10-21] MEDS: PANTOPRAZOLE 40 MG TAB DR PO SCH (08:33)
[2020-10-21] MEDS: POLYETHYLENE GLYCOL 3350 17 GM POWD.PACK PO SCH (08:33)
[2020-10-21] MEDS: HYDRALAZINE 25MG TABLET PO SCH ×3 (08:34→21:04)
[2020-10-21] MEDS: MEROPENEM 500 MG VIAL IVP SCH (08:34)
[2020-10-21] MEDS: AMLODIPINE 5 MG TAB PO SCH (08:34)
[2020-10-21] MEDS: CLOPIDOGREL 75MG TAB PO SCH (08:34)
[2020-10-21] MEDS: Vitamin B Complex/Vit C/Folic Acid PO SCH (08:34)
[2020-10-21] MEDS: ASPIRIN 81 MG EC TAB PO SCH (08:34)
[2020-10-21] MEDS: FUROSEMIDE 80 MG TABLET PO SCH (08:34)
[2020-10-21] MEDS: LACTULOSE 20 GM/30 ML UDCUP PO PRN (08:51)
[2020-10-21] MEDS: IRON SUCROSE COMPLEX 300 MG in 0.9%NACL 50ML 50 ML IV SCH (08:51)
[2020-10-21] MEDS ORDERED: HEPARIN 5,000 UNIT VIAL IV SCH (09:30)
[2020-10-21] MEDS ORDERED: HEPARIN 1,000 UNIT VIAL ONE (11:07)
[2020-10-21] MEDS ORDERED: LIDOCAINE HCL 1% MDV 50ML VIAL ONE (11:08)
[2020-10-21] MEDS ORDERED: DICYCLOMINE HCL 20 MG TAB PO PRN (15:30)
[2020-10-21] MEDS ORDERED: NITROGLYCERIN 0.4 MG SL TAB SL ONE (18:21)
[2020-10-21] MEDS ORDERED: NITROGLYCERIN 0.4 MG SL TAB SL PRN (18:30)
[2020-10-21] MEDS: ATORVASTATIN 10 MG TABLET PO SCH (21:04)
[2020-10-21] MEDS: TEMAZEPAM 7.5 MG CAPSULE PO SCH (21:04)
[2020-10-21] MEDS: INSULIN GLARGINE 100 UNITS/ML 10 ML VIAL SQ SCH (21:05)
[2020-10-22] VITALS (8 sets, daily range): BP systolic 96–179; BP diastolic 47–114
[2020-10-22] MEDS: CLOTRIMAZOLE 10 MG TROCHE MM SCH ×4 (00:11→17:48)
[2020-10-22 04:07] LABS: BASOPHILS % (AUTO) 0.4 % (0.0-5.0); HEMATOCRIT 24.3 % (36-48); LYMPHOCYTES % (AUTO) 23.7 % (21.0-51.0); MEAN CORPUSCULAR HEMOGLOBIN 27.5 pg (27.0-33.0); MEAN CORPUSCULAR HGB CONC 31.7 g/dL (32.0-36.0); MEAN CORPUSCULAR VOLUME 86.8 fL (79-99); MONOCYTES % (AUTO) 8.2 % (3.0-13.0); NEUTROPHILS % (AUTO) 64.8 % (40.0-77.0); NUCLEATED RED BLOOD CELLS 0.7 % (0.0-0.19); PLATELET COUNT (AUTO) 178 K/uL (130-400); RED CELL DISTRIBUTION WIDTH 14.8 % (11.0-15.5); WHITE BLOOD COUNT (AUTO) 9.4 K/uL (4.8-10.8)
[2020-10-22 04:28] LABS: B-TYPE NATRIURETIC PEPTIDE 2020 pg/mL (0-100)
[2020-10-22 04:31] LABS: ALBUMIN 2.9 g/dL (3.5-5.0); BILIRUBIN,TOTAL 0.3 mg/dL (0.2-1.0); CREATININE 2.9 mg/dL (0.5-1.5); PHOSPHORUS 2.6 mg/dL (2.5-4.9); POTASSIUM 3.7 mmol/L (3.5-5.1); THYROID STIMULATING HORMONE 4.43 uIU/mL (0.36-3.74); TOTAL PROTEIN, SERUM 6.2 g/dL (6.0-8.3)
[2020-10-22] MEDS: INSULIN HUMULIN R 100 UNIT/ML 3ML SQ SCH ×4 (07:30→20:49)
[2020-10-22] MEDS: CLOPIDOGREL 75MG TAB PO SCH (08:42)
[2020-10-22] MEDS: Vitamin B Complex/Vit C/Folic Acid PO SCH (08:43)
[2020-10-22] MEDS: ASPIRIN 81 MG EC TAB PO SCH (08:43)
[2020-10-22] MEDS: AMLODIPINE 5 MG TAB PO SCH (08:43)
[2020-10-22] MEDS: MEROPENEM 500 MG VIAL IVP SCH (08:43)
[2020-10-22] MEDS: HYDRALAZINE 25MG TABLET PO SCH ×3 (08:43→20:51)
[2020-10-22] MEDS: PANTOPRAZOLE 40 MG TAB DR PO SCH (08:44)
[2020-10-22] MEDS: POLYETHYLENE GLYCOL 3350 17 GM POWD.PACK PO SCH (08:44)
[2020-10-22] MEDS: NICOTINE 14 MG/ 24 HR PATCH TD SCH (08:45)
[2020-10-22] MEDS: IRON SUCROSE COMPLEX 300 MG in 0.9%NACL 50ML 50 ML IV SCH (09:43)
[2020-10-22] MEDS: METOPROLOL TARTRATE 25 MG TAB PO SCH ×2 (09:51→20:47)
[2020-10-22] MEDS ORDERED: ALTEPLASE 2MG VIAL 2 MG/VIAL VIAL IVCATH ONE (18:00)
[2020-10-22] MEDS: TEMAZEPAM 7.5 MG CAPSULE PO SCH (20:47)
[2020-10-22] MEDS: ATORVASTATIN 10 MG TABLET PO SCH (20:47)
[2020-10-22] MEDS: INSULIN GLARGINE 100 UNITS/ML 10 ML VIAL SQ SCH (20:52)
[2020-10-23] VITALS (19 sets, daily range): BP systolic 117–177; BP diastolic 50–83
[2020-10-23] MEDS: CLOTRIMAZOLE 10 MG TROCHE MM SCH ×5 (00:15→23:14)
[2020-10-23 05:40] LABS: HEMATOCRIT 24.2 % (36-48); MEAN CORPUSCULAR HEMOGLOBIN 27.8 pg (27.0-33.0); MEAN CORPUSCULAR HGB CONC 31.8 g/dL (32.0-36.0); MEAN CORPUSCULAR VOLUME 87.4 fL (79-99); NUCLEATED RED BLOOD CELLS 0.4 % (0.0-0.19); RED BLOOD CELL COUNT(AUTO) 2.77 MIL/uL (4.00-5.50); RED CELL DISTRIBUTION WIDTH 16.7 % (11.0-15.5); WHITE BLOOD COUNT (AUTO) 7.5 K/uL (4.8-10.8)
[2020-10-23 06:22] LABS: CREATININE 3.8 mg/dL (0.5-1.5); PHOSPHORUS 3.5 mg/dL (2.5-4.9); POTASSIUM 3.3 mmol/L (3.5-5.1); THYROID STIMULATING HORMONE 4.25 uIU/mL (0.36-3.74)
[2020-10-23 06:31] LABS: MAGNESIUM 2.1 mg/dL (1.80-2.40)
[2020-10-23] MEDS: INSULIN HUMULIN R 100 UNIT/ML 3ML SQ SCH ×4 (06:35→21:53)
[2020-10-23] MEDS: METOPROLOL TARTRATE 25 MG TAB PO SCH ×2 (08:42→21:04)
[2020-10-23] MEDS: ASPIRIN 81 MG EC TAB PO SCH (08:42)
[2020-10-23] MEDS: PANTOPRAZOLE 40 MG TAB DR PO SCH (08:42)
[2020-10-23] MEDS: HYDRALAZINE 25MG TABLET PO SCH ×3 (08:43→21:05)
[2020-10-23] MEDS: MEROPENEM 500 MG VIAL IVP SCH (08:44)
[2020-10-23] MEDS: CLOPIDOGREL 75MG TAB PO SCH (08:44)
[2020-10-23] MEDS: NICOTINE 14 MG/ 24 HR PATCH TD SCH (08:44)
[2020-10-23] MEDS: POLYETHYLENE GLYCOL 3350 17 GM POWD.PACK PO SCH (08:44)
[2020-10-23] MEDS: Vitamin B Complex/Vit C/Folic Acid PO SCH (08:44)
[2020-10-23] MEDS: AMLODIPINE 5 MG TAB PO SCH (08:44)
[2020-10-23] MEDS: IRON SUCROSE COMPLEX 300 MG in 0.9%NACL 50ML 50 ML IV SCH (08:59)
[2020-10-23] MEDS ORDERED: LORAZEPAM 0.5 MG TABLET PO SCH (15:30)
[2020-10-23] MEDS ORDERED: LORAZEPAM 0.5 MG TABLET ONE (15:30)
[2020-10-23] MEDS: ATORVASTATIN 10 MG TABLET PO SCH (21:04)
[2020-10-23] MEDS: TEMAZEPAM 7.5 MG CAPSULE PO SCH (21:12)
[2020-10-23] MEDS: ACETAMINOPHEN 325 MG TAB PO PRN (21:15)
[2020-10-23] MEDS: INSULIN GLARGINE 100 UNITS/ML 10 ML VIAL SQ SCH (21:53)
[2020-10-24] VITALS (15 sets, daily range): BP systolic 130–198; BP diastolic 50–89
[2020-10-24] MEDS: CLOTRIMAZOLE 10 MG TROCHE MM SCH ×2 (05:31→11:49)
[2020-10-24] MEDS: INSULIN HUMULIN R 100 UNIT/ML 3ML SQ SCH ×3 (06:23→16:18)
[2020-10-24 06:40] LABS: BASOPHILS % (AUTO) 0.5 % (0.0-5.0); EOSINOPHILS % (AUTO) 1.2 % (0.0-8.0); HEMATOCRIT 25.8 % (36-48); MEAN CORPUSCULAR HEMOGLOBIN 27.2 pg (27.0-33.0); MEAN CORPUSCULAR HGB CONC 30.6 g/dL (32.0-36.0); MONOCYTES % (AUTO) 11.7 % (3.0-13.0); NEUTROPHILS % (AUTO) 58.5 % (40.0-77.0); PLATELET COUNT (AUTO) 145 K/uL (130-400); RED CELL DISTRIBUTION WIDTH 17.2 % (11.0-15.5); WHITE BLOOD COUNT (AUTO) 5.6 K/uL (4.8-10.8)
[2020-10-24 06:55] LABS: CREATININE 2.8 mg/dL (0.5-1.5); POTASSIUM 3.5 mmol/L (3.5-5.1)
[2020-10-24] MEDS: POLYETHYLENE GLYCOL 3350 17 GM POWD.PACK PO SCH (09:00)
[2020-10-24] MEDS: ASPIRIN 81 MG EC TAB PO SCH (09:00)
[2020-10-24] MEDS: IRON SUCROSE COMPLEX 300 MG in 0.9%NACL 50ML 50 ML IV SCH (09:00)
[2020-10-24] MEDS: HYDRALAZINE 20MG/ML VIAL IV PRN (09:51)
[2020-10-24] MEDS: HYDRALAZINE 25MG TABLET PO SCH ×2 (11:32→14:08)
[2020-10-24] MEDS: NICOTINE 14 MG/ 24 HR PATCH TD SCH (11:32)
[2020-10-24] MEDS: Vitamin B Complex/Vit C/Folic Acid PO SCH (11:32)
[2020-10-24] MEDS: CLOPIDOGREL 75MG TAB PO SCH (11:32)
[2020-10-24] MEDS: PANTOPRAZOLE 40 MG TAB DR PO SCH (11:32)
[2020-10-24] MEDS: AMLODIPINE 5 MG TAB PO SCH (11:32)
[2020-10-24] MEDS: METOPROLOL TARTRATE 25 MG TAB PO SCH (11:32)
[2020-10-24] MEDS: MEROPENEM 500 MG VIAL IVP SCH (11:33)
[2020-10-24] MEDS: ACETAMINOPHEN 325 MG TAB PO PRN (14:22)
== END 2020-10-24 18:00 | disposition home or self-care (01) | DRG 291 ==
LOC: EDH 21:01 → EDHIP 22:52 → OBSVTOIN 22:52 → 4DH 10-13 22:52 → 3DH 10-22 21:38
PROVIDERS: ADMIT Internal Medicine; ATTEND Internal Medicine
PROC: 5A1D70Z Performance of Urinary Filtration, Intermittent, Less than 6 Hours Per Day (ICD-10-PCS; principal; 2020-10-15)
PROC: 05PYX3Z Removal of Infusion Device from Upper Vein, External Approach (ICD-10-PCS; 2020-10-15)
PROC: 05HY33Z Insertion of Infusion Device into Upper Vein, Percutaneous Approach (ICD-10-PCS; 2020-10-15)
PROC: 05HB33Z Insertion of Infusion Device into Right Basilic Vein, Percutaneous Approach (ICD-10-PCS; 2020-10-15)
PROC: 5A1D70Z Performance of Urinary Filtration, Intermittent, Less than 6 Hours Per Day (ICD-10-PCS; 2020-10-16)
PROC: 5A1D70Z Performance of Urinary Filtration, Intermittent, Less than 6 Hours Per Day (ICD-10-PCS; 2020-10-17)
PROC: 5A1D70Z Performance of Urinary Filtration, Intermittent, Less than 6 Hours Per Day (ICD-10-PCS; 2020-10-19)
PROC: 5A1D70Z Performance of Urinary Filtration, Intermittent, Less than 6 Hours Per Day (ICD-10-PCS; 2020-10-21)
PROC: 0JH63XZ Insertion of Tunneled Vascular Access Device into Chest Subcutaneous Tissue and Fascia, Percutaneous Approach (ICD-10-PCS; 2020-10-21)
PROC: 02HV33Z Insertion of Infusion Device into Superior Vena Cava, Percutaneous Approach (ICD-10-PCS; 2020-10-21)
PROC: B5181ZA Fluoroscopy of Superior Vena Cava using Low Osmolar Contrast, Guidance (ICD-10-PCS; 2020-10-21)
PROC: 5A1D70Z Performance of Urinary Filtration, Intermittent, Less than 6 Hours Per Day (ICD-10-PCS; 2020-10-23)
PROC: 5A1D70Z Performance of Urinary Filtration, Intermittent, Less than 6 Hours Per Day (ICD-10-PCS; 2020-10-24)
DX: I13.2 Hypertensive heart and chronic kidney disease with heart failure and with stage 5 chronic kidney disease, or end stage renal disease (principal); I50.33 Acute on chronic diastolic (congestive) heart failure; J96.01 Acute respiratory failure with hypoxia; N18.6 End stage renal disease; J18.9 Pneumonia, unspecified organism; N17.9 Acute kidney failure, unspecified; J98.11 Atelectasis; B37.0 Candidal stomatitis; E87.2 Acidosis; Z16.12 Extended spectrum beta lactamase (ESBL) resistance; Z16.24 Resistance to multiple antibiotics; N39.0 Urinary tract infection, site not specified; E11.22 Type 2 diabetes mellitus with diabetic chronic kidney disease; E83.41 Hypermagnesemia; E87.5 Hyperkalemia; B96.20 Unspecified Escherichia coli [E. coli] as the cause of diseases classified elsewhere; Z20.822 Contact with and (suspected) exposure to COVID-19; D63.8 Anemia in other chronic diseases classified elsewhere; E11.65 Type 2 diabetes mellitus with hyperglycemia; E78.00 Pure hypercholesterolemia, unspecified; E78.5 Hyperlipidemia, unspecified; E83.52 Hypercalcemia; F17.200 Nicotine dependence, unspecified, uncomplicated; I25.10 Atherosclerotic heart disease of native coronary artery without angina pectoris; I27.22 Pulmonary hypertension due to left heart disease; J43.9 Emphysema, unspecified; K59.00 Constipation, unspecified; Z74.01 Bed confinement status; Z79.899 Other long term (current) drug therapy; Z99.2 Dependence on renal dialysis; Z95.5 Presence of coronary angioplasty implant and graft; Z90.710 Acquired absence of both cervix and uterus; Z87.440 Personal history of urinary (tract) infections; Z83.3 Family history of diabetes mellitus; Z80.9 Family history of malignant neoplasm, unspecified; Z82.0 Family history of epilepsy and other diseases of the nervous system; Z82.49 Family history of ischemic heart disease and other diseases of the circulatory system
CPT/HCPCS: 36415; 36556; 36581; 71045; 74018; 74176; 77001; 80048; 80053; 80061; 81001; 82040; 82728; 82948; 83036; 83540; 83550; 83605; 83690; 83735; 83880; 84100; 84443; 84484; 85025; 85027; 85610; 85730; 86140; 86701; 86704; 86706; 87077; 87088; 87186; 87340; 87390; 87635; 90935; 93005; 93306; 93356; 93970; 94664; 94760; C1750; C1752; C1894; C9803; G0378; J0360; J0696; J1170; J1644; J1756; J1815; J1940; J2185; J2405; J2997; J3490; J7030

== ENCOUNTER 2021-06-29 10:11 | Day surgery (SDC) | payer OTHER, MEDICARE ==
[2021-06-28 11:52] LABS: BASOPHILS % (AUTO) 0.4 % (0.0-5.0); EOSINOPHILS % (AUTO) 0.6 % (0.0-8.0); HEMATOCRIT 35.8 % (36-48); LYMPHOCYTES % (AUTO) 21.5 % (21.0-51.0); MEAN CORPUSCULAR HGB CONC 31.6 g/dL (32.0-36.0); MEAN CORPUSCULAR VOLUME 91.8 fL (79-99); MONOCYTES % (AUTO) 6.3 % (3.0-13.0); NEUTROPHILS % (AUTO) 70.6 % (40.0-77.0); PLATELET COUNT (AUTO) 218 K/uL (130-400); WHITE BLOOD COUNT (AUTO) 10.9 K/uL (4.8-10.8)
[2021-06-28 12:03] LABS: CREATININE 6.7 mg/dL (0.5-1.5); POTASSIUM 5.6 mmol/L (3.5-5.1)
[2021-06-28 12:05] LABS: INR 0.99 (0.85-1.15); PROTHROMBIN TIME 10.8 SEC (9.6-11.6)
[2021-06-28 12:06] LABS: PARTIAL THROMBOPLASTIN TIME 28.1 SEC (26.3-35.5)
[2021-06-28 12:50] VITALS: BP 169/70
[2021-06-29] VITALS (16 sets, daily range): BP systolic 172–194; BP diastolic 57–80
[~2021-06-29 10:11] MED LIST changes: -AEC81 PO; -AMOX500C2 PO; +ATOR10TA69 PO; -CEPH500B PO; +CHOL500051 PO; -DICY20TA2 PO; +FOLI0.8T43 PO; -FURO20TA4 PO; +GABA-529 PO; +HYDR100T27 PO; -INSNOV SQ; -LOVA40TA2 PO; -ONDA4TAB10 PO
[2021-06-29] MEDS: CEFAZOLIN SODIUM 1 GM VIAL ONE ×2 (12:00→13:00)
[2021-06-29] MEDS ORDERED: CEFAZOLIN SODIUM 1 GM VIAL ONE (12:22)
[2021-06-29] MEDS ORDERED: 0.9%NACL 1000ML 1,000 ML IV ONE (12:22)
[2021-06-29] MEDS ORDERED: LIDOCAINE PF 100MG/5ML (2%) SYRINGE 5ML ONE (12:26)
[2021-06-29] MEDS ORDERED: PROPOFOL 10 MG/ML 20ML VIAL IV ONE (12:27)
[2021-06-29] MEDS ORDERED: FENTANYL CITRATE PF 50 MCG/1 ML 2ML VIAL ONE ×2 (12:27→13:23)
[2021-06-29] MEDS ORDERED: ROCURONIUM 10MG/1ML SYR 10 MG/ML ML ONE (12:27)
[2021-06-29] MEDS ORDERED: ONDANSETRON 4MG INJ ONE ×2 (12:27→15:49)
[2021-06-29] MEDS ORDERED: PHENYLEPHRINE HCL 10 MG/ML 1ML VIAL IV ONE (12:55)
[2021-06-29 13:01] LABS: ABG BASE EXCESS -4.7 mmol/L (-2.0-3.0); ABG HCO3 21.1 mmol/L (21.0-28.0); ABG OXYGEN SATURATION 99.4 % (95.0-99.0); ABG PCO2 42 mmHg (32-45)
[2021-06-29] MEDS ORDERED: BUPIVACAINE/PF 0.5% 30ML VIAL ONE (13:53)
[2021-06-29] MEDS ORDERED: LIDOCAINE HCL 1% 20 ML VIAL ONE (13:53)
[2021-06-29] MEDS ORDERED: NEOSTIGMINE 5MG/5ML SYR IV ONE (14:04)
[2021-06-29] MEDS ORDERED: GLYCOPYRROLATE 1 MG/5 ML SYRINGE ONE (14:04)
[2021-06-29] MEDS ORDERED: CLONIDINE HCL 0.2 MG TABLET PO ONE (14:53)
== END 2021-06-29 16:15 | disposition home or self-care (01) ==
LOC: DAH 10:11
PROVIDERS: ATTEND Thoracic Surgery (Cardiothoracic Vascular Surgery)
DX: E11.22 Type 2 diabetes mellitus with diabetic chronic kidney disease (principal); I13.11 Hypertensive heart and chronic kidney disease without heart failure, with stage 5 chronic kidney disease, or end stage renal disease; N18.6 End stage renal disease; F17.200 Nicotine dependence, unspecified, uncomplicated; I25.10 Atherosclerotic heart disease of native coronary artery without angina pectoris; E78.5 Hyperlipidemia, unspecified; Z99.2 Dependence on renal dialysis; Z86.73 Personal history of transient ischemic attack (TIA), and cerebral infarction without residual deficits; Z98.890 Other specified postprocedural states; Z79.899 Other long term (current) drug therapy; Z79.01 Long term (current) use of anticoagulants
CPT/HCPCS: 36415; 36600; 36830; 71045; 80048; 82435; 82803; 82947; 82948 ×2; 83605; 84132; 84295; 85018; 85025; 85610; 85730; 86850; 86900; 86901; 87635; 93005; A4215; A4221; A4222; A4223; A4452; A4649 ×2; A4663; A4930; A6207; A6260; C1713 ×2; C1768; C9803; G0168; J0690 ×2; J1644; J2001; J2370; J2405 ×2; J2704; J2710; J3010 ×2; J3490 ×2; J7030 ×2

== ENCOUNTER 2021-07-30 07:25 | Day surgery (SDC) | payer OTHER, MEDICARE ==
[2021-07-29 11:15] LABS: HEMATOCRIT 33.7 % (36-48); MEAN CORPUSCULAR HEMOGLOBIN 28.4 pg (27.0-33.0); MEAN CORPUSCULAR HGB CONC 31.5 g/dL (32.0-36.0); MEAN CORPUSCULAR VOLUME 90.3 fL (79-99); RED BLOOD CELL COUNT(AUTO) 3.73 MIL/uL (4.00-5.50); RED CELL DISTRIBUTION WIDTH 14.5 % (11.0-15.5); WHITE BLOOD COUNT (AUTO) 8.3 K/uL (4.8-10.8)
[2021-07-29 11:26] LABS: CREATININE 4.1 mg/dL (0.5-1.5); POTASSIUM 4.7 mmol/L (3.5-5.1)
[2021-07-29 11:54] LABS: INR 0.97 (0.85-1.15); PROTHROMBIN TIME 10.6 SEC (9.6-11.6)
[2021-07-29 11:55] LABS: PARTIAL THROMBOPLASTIN TIME 27.1 SEC (26.3-35.5)
[2021-07-29 12:47] VITALS: BP 154/64
[~2021-07-30] VITALS: Ht 152.4 cm; Wt 55.8 kg
[2021-07-30] VITALS (20 sets, daily range): BP systolic 137–192; BP diastolic 45–69
[~2021-07-30 07:25] MED LIST changes: -AMLO-257 PO; -ATOR10TA69 PO; -CHOL500051 PO; -CLOP75TA32 PO; -FOLI0.8T43 PO; +INSU100C6 SQ; -LISI40TA9 PO
[2021-07-30] MEDS ORDERED: 0.9% NACL 500ML IV.SOLN 500 ML IV ONE (08:16)
[2021-07-30] MEDS ORDERED: CEFAZOLIN SODIUM 1 GM VIAL ONE ×2 (08:16)
[2021-07-30 08:19] LABS: CREATININE 4.9 mg/dL (0.5-1.5); POTASSIUM 4.7 mmol/L (3.5-5.1)
[2021-07-30] MEDS ORDERED: FENTANYL CITRATE PF 50 MCG/1 ML 2ML VIAL ONE (08:41)
[2021-07-30] MEDS ORDERED: PROPOFOL 10 MG/ML 20ML VIAL IV ONE (08:41)
[2021-07-30] MEDS ORDERED: ROCURONIUM 10MG/1ML SYR 10 MG/ML ML ONE (08:41)
[2021-07-30] MEDS ORDERED: LIDOCAINE PF 100MG/5ML (2%) SYRINGE 5ML ONE (08:41)
[2021-07-30] MEDS ORDERED: CEFAZOLIN SODIUM 2 GM VIAL IV ONE (09:40)
[2021-07-30] MEDS ORDERED: PHENYLEPHRINE HCL 10 MG/ML 1ML VIAL IV ONE (09:51)
[2021-07-30] MEDS ORDERED: EPHEDRINE SULFATE 50 MG/ML AMPULE ONE (09:58)
[2021-07-30] MEDS ORDERED: DEXAMETHASONE SOD PHOSPHATE 10MG/ML 1ML VIAL ONE (10:00)
[2021-07-30] MEDS ORDERED: ONDANSETRON 4MG INJ ONE ×2 (10:01→11:43)
[2021-07-30] MEDS ORDERED: CEFAZOLIN SODIUM 1 GM VIAL IRRIG ONE (10:20)
[2021-07-30] MEDS ORDERED: BUPIVACAINE/PF 0.25% 50ML VIAL IJ ONE (10:20)
[2021-07-30] MEDS ORDERED: LIDOCAINE HCL 1% MDV 50ML VIAL IJ ONE (10:20)
[2021-07-30] MEDS ORDERED: PROTAMINE SULFATE 10 MG/ML 25ML VIAL IV ONE (11:02)
[2021-07-30] MEDS ORDERED: LIDOCAINE HCL 1% MDV 50ML VIAL ONE (11:04)
[2021-07-30] MEDS ORDERED: BUPIVACAINE/PF 0.25% 30ML VIAL IJ ONE (11:04)
[2021-07-30] MEDS ORDERED: NEOSTIGMINE 5MG/5ML SYR IV ONE (11:09)
[2021-07-30] MEDS ORDERED: GLYCOPYRROLATE 1 MG/5 ML SYRINGE ONE (11:09)
[2021-07-30] MEDS ORDERED: MEPERIDINE-PF 25 MG/ML SYG ONE (11:44)
== END 2021-07-30 15:00 | disposition home or self-care (01) ==
LOC: DAH 07:25
PROVIDERS: ATTEND Thoracic Surgery (Cardiothoracic Vascular Surgery)
DX: T82.898A Other specified complication of vascular prosthetic devices, implants and grafts, initial encounter (principal); E11.22 Type 2 diabetes mellitus with diabetic chronic kidney disease; I13.11 Hypertensive heart and chronic kidney disease without heart failure, with stage 5 chronic kidney disease, or end stage renal disease; N18.6 End stage renal disease; I25.10 Atherosclerotic heart disease of native coronary artery without angina pectoris; E78.5 Hyperlipidemia, unspecified; Z86.73 Personal history of transient ischemic attack (TIA), and cerebral infarction without residual deficits; Z79.01 Long term (current) use of anticoagulants; Z79.899 Other long term (current) drug therapy; Z99.2 Dependence on renal dialysis; Y83.8 Other surgical procedures as the cause of abnormal reaction of the patient, or of later complication, without mention of misadventure at the time of the procedure
CPT/HCPCS: 36415 ×2; 36838; 71045; 80048 ×2; 82948 ×2; 85027; 85610; 85730; 86850; 86900; 86901; 87635; 93005; A4215; A4221; A4222; A4223; A4452; A4615; A4649 ×2; A4663; A6207; A6260; C1713 ×2; C1768; C9803; G0168; J0690 ×4; J1100; J1644; J2001; J2175; J2370; J2405 ×2; J2704; J2710; J2720; J3010; J3490 ×6; J7030; J7040

== ENCOUNTER 2021-08-02 23:04 | Observation (INO) | payer OTHER, MEDICARE ==
[~2021-08-02] VITALS: Ht 154.9 cm; Wt 53.1 kg
[2021-08-02 23:41] LABS: BASOPHILS % (AUTO) 0.3 % (0.0-5.0); EOSINOPHILS % (AUTO) 0.3 % (0.0-8.0); HEMATOCRIT 34.5 % (36-48); LYMPHOCYTES % (AUTO) 14.9 % (21.0-51.0); MEAN CORPUSCULAR HEMOGLOBIN 28.8 pg (27.0-33.0); MEAN CORPUSCULAR VOLUME 87.1 fL (79-99); MONOCYTES % (AUTO) 5.2 % (3.0-13.0); NEUTROPHILS % (AUTO) 78.7 % (40.0-77.0); PLATELET COUNT (AUTO) 236 K/uL (130-400); RED BLOOD CELL COUNT(AUTO) 3.96 MIL/uL (4.00-5.50); RED CELL DISTRIBUTION WIDTH 14.5 % (11.0-15.5); WHITE BLOOD COUNT (AUTO) 11.6 K/uL (4.8-10.8)
[2021-08-02 23:59] LABS: CARBON DIOXIDE 22 mmol/L (21-32); CREATININE 7.1 mg/dL (0.5-1.5); GLOMERULAR FILTR. RATE CALC 6 mL/min (>60); GLUCOSE,RANDOM 274 mg/dL (70-105); POTASSIUM 4.3 mmol/L (3.5-5.1); SODIUM SERUM 128 mmol/L (136-145); UREA NITROGEN, BLOOD 73 mg/dL (7-18)
[2021-08-03] VITALS (18 sets, daily range): BP systolic 105–186; BP diastolic 49–69
[2021-08-03 00:06] LABS: ALBUMIN 3.2 g/dL (3.5-5.0); ASPARTATE AMINOTRANSFERASE 11 U/L (10-37); B-TYPE NATRIURETIC PEPTIDE 1000 pg/mL (0-100); BILIRUBIN,TOTAL 0.4 mg/dL (0.2-1.0); CHLORIDE 90 mmol/L (101-111); CREATINE KINASE, TOTAL 41 U/L (21-232); TOTAL PROTEIN, SERUM 7.5 g/dL (6.0-8.3)
[2021-08-03 00:22] LABS: ALANINE AMINOTRANSFERASE < 6 U/L (12-78); LIPASE < 50 U/L (114-286)
[2021-08-03] MEDS ORDERED: ONDANSETRON 4MG INJ IVP ONE (00:30)
[2021-08-03] MEDS ORDERED: MORPHINE 4 MG SYG IVP ONE (00:30)
[2021-08-03] MEDS ORDERED: LABETALOL 20MG SYG IV ONE ×3 (00:30→08:30)
[2021-08-03] MEDS ORDERED: ALBUTEROL INHALER 90MCG/INH IH PRN (01:30)
[2021-08-03] MEDS ORDERED: ACETAMINOPHEN 325 MG TAB PO PRN (01:30)
[2021-08-03] MEDS ORDERED: HYDROCODONE/ACETAMINOPHEN 5/325 MG TAB PO PRN ×2 (01:30)
[2021-08-03] MEDS ORDERED: ONDANSETRON 4MG INJ IV PRN (01:30)
[2021-08-03] MEDS ORDERED: HYDRALAZINE 20MG/ML VIAL IV PRN (03:30)
[2021-08-03 07:08] LABS: HEMOGLOBIN A1C 8.6 % (4.0-6.0)
[2021-08-03 07:09] LABS: APPEARANCE,URINE CLOUDY (CLEAR); BILIRUBIN,URINE NEGATIVE (NEGATIVE); COLOR,URINE YELLOW (YELLOW); GLUCOSE, URINE (UA) 100 mg/dL (NEGATIVE); KETONES,URINE 5 mg/dL (NEGATIVE); LEUKOCYTE ESTERASE ,URINE LARGE (NEGATIVE); NITRATE,URINE NEGATIVE (NEGATIVE); OCCULT BLOOD,URINE MODERATE (NEGATIVE); PROTEIN,URINE >=300 mg/dL (NEGATIVE); UROBILINOGEN,URINE 0.2 mg/dL (0.2-1.0)
[2021-08-03 07:10] LABS: CREATININE 7.3 mg/dL (0.5-1.5); MAGNESIUM 2.6 mg/dL (1.80-2.40); PHOSPHORUS 7.3 mg/dL (2.5-4.9); POTASSIUM 4.5 mmol/L (3.5-5.1)
[2021-08-03 07:16] LABS: BACTERIA,URINE Many /HPF (None Seen); WBC,URINE TNTC /HPF (0-1); YEAST,URINE BUDDING Many /HPF (None Seen)
[2021-08-03 07:31] LABS: INR 1.07 (0.85-1.15); PROTHROMBIN TIME 11.6 SEC (9.6-11.6)
[2021-08-03 07:32] LABS: PARTIAL THROMBOPLASTIN TIME 28.5 SEC (26.3-35.5)
[2021-08-03] MEDS: INSULIN HUMULIN R 100 UNIT/ML 3ML SQ SCH ×4 (07:44→21:26)
[2021-08-03] MEDS ORDERED: HYDRALAZINE 25MG TABLET PO SCH (09:00)
[2021-08-03] MEDS: AMLODIPINE 5 MG TAB PO SCH (09:00)
[2021-08-03] MEDS ORDERED: DULO60CA45 PO (09:48)
[2021-08-03] MEDS ORDERED: FOLI1TAB85 PO (09:48)
[2021-08-03] MEDS ORDERED: AMLO-258 PO (09:48)
[2021-08-03] MEDS ORDERED: INSLAN SQ (09:48)
[2021-08-03] MEDS ORDERED: CLOP75TA14 PO (09:48)
[2021-08-03] MEDS ORDERED: ATOR10 PO (09:48)
[2021-08-03] MEDS ORDERED: SUCR500T PO (09:48)
[2021-08-03] MEDS ORDERED: TRAM50TA4 PO (09:48)
[2021-08-03] MEDS ORDERED: LABETALOL 20MG VIAL IV PRN (10:00)
[2021-08-03] MEDS ORDERED: LABETALOL 20MG SYG IV PRN (10:30)
[2021-08-03] MEDS: HEPARIN 5,000 UNIT VIAL IJ SCH (13:43)
[2021-08-03] MEDS: FAMOTIDINE 20MG TAB PO SCH (15:46)
[2021-08-03] MEDS: HEPARIN 5,000 UNIT VIAL SQ SCH ×2 (15:47→19:56)
[2021-08-03] MEDS ORDERED: PHARMACY COMMUNICATION MISC SCH (16:00)
[2021-08-03] MEDS ORDERED: CEFTRIAXONE 1G VIAL IVP SCH (16:00)
[2021-08-03 16:48] LABS: APPEARANCE,URINE CLOUDY (CLEAR); BILIRUBIN,URINE NEGATIVE (NEGATIVE); COLOR,URINE YELLOW (YELLOW); GLUCOSE, URINE (UA) 100 mg/dL (NEGATIVE); KETONES,URINE 5 mg/dL (NEGATIVE); LEUKOCYTE ESTERASE ,URINE LARGE (NEGATIVE); NITRATE,URINE NEGATIVE (NEGATIVE); OCCULT BLOOD,URINE MODERATE (NEGATIVE); PROTEIN,URINE >=300 mg/dL (NEGATIVE); UROBILINOGEN,URINE 0.2 mg/dL (0.2-1.0)
[2021-08-03] MEDS ORDERED: MEROPENEM 500 MG VIAL IVP SCH (17:00)
[2021-08-03 17:09] LABS: BACTERIA,URINE Moderate /HPF (None Seen); SQUAMOUS EPITHELIAL CELL,UR Rare /HPF (0-2); WBC,URINE >100 /HPF (0-1); YEAST,URINE BUDDING Moderate /HPF (None Seen)
[2021-08-03] MEDS ORDERED: LACTULOSE 20 GM/30 ML UDCUP PO PRN (17:30)
[2021-08-03] MEDS ORDERED: ACETAMINOPHEN WITH CODEINE 1 TAB TAB PO ONE (17:30)
[2021-08-03] MEDS: HYDRALAZINE 25MG TABLET PO SCH (19:57)
[2021-08-03] MEDS ORDERED: FUROSEMIDE 100MG VIAL IVP ONE (20:30)
[2021-08-03] MEDS ORDERED: IPRATROPIUM/ALBUTEROL SULFATE 3 ML SOLUTION IH ONE (20:30)
[2021-08-03 20:41] LABS: ABG HCO3 20.6 mmol/L (21.0-28.0); ABG OXYGEN SATURATION 98.4 % (95.0-99.0); ABG PCO2 36 mmHg (32-45)
[2021-08-03 20:44] LABS: HEPATITIS B SURFACE ANTIGEN Non-Reactive (Negative)
[2021-08-04] VITALS (19 sets, daily range): BP systolic 137–193; BP diastolic 46–101
[2021-08-04] MEDS: IPRATROPIUM/ALBUTEROL SULFATE 3 ML SOLUTION IH SCH ×3 (00:08→11:23)
[2021-08-04 05:20] LABS: ALBUMIN 2.8 g/dL (3.5-5.0); BILIRUBIN,TOTAL 0.3 mg/dL (0.2-1.0); CREATININE 5.2 mg/dL (0.5-1.5); PHOSPHORUS 5.7 mg/dL (2.5-4.9); POTASSIUM 3.7 mmol/L (3.5-5.1); TOTAL PROTEIN, SERUM 6.6 g/dL (6.0-8.3)
[2021-08-04 05:24] LABS: HEMATOCRIT 33.3 % (36-48); MEAN CORPUSCULAR HEMOGLOBIN 28.3 pg (27.0-33.0); MEAN CORPUSCULAR HGB CONC 31.5 g/dL (32.0-36.0); MEAN CORPUSCULAR VOLUME 89.8 fL (79-99); PLATELET COUNT (AUTO) 218 K/uL (130-400); RED BLOOD CELL COUNT(AUTO) 3.71 MIL/uL (4.00-5.50); RED CELL DISTRIBUTION WIDTH 14.7 % (11.0-15.5); WHITE BLOOD COUNT (AUTO) 9.2 K/uL (4.8-10.8)
[2021-08-04] MEDS ORDERED: DEXTROSE 50%-WATER 50 ML DISP.SYRIN IV ONE (05:50)
[2021-08-04] MEDS: INSULIN HUMULIN R 100 UNIT/ML 3ML SQ SCH (05:57)
[2021-08-04] MEDS ORDERED: BUDESONIDE 0.5 MG/2 ML INH IH SCH (06:00)
[2021-08-04 06:50] LABS: EOSINOPHILS % (MANUAL) 1 % (1-6); LYMPHOCYTES % (MANUAL) 25 % (22-44); MAN.DIFF COMMENT-IMPRESSION MANUAL DIFFERENTIAL; MONOCYTES % (MANUAL) 10 % (2-9); PLATELET MORPHOLOGY COMMENT ADEQUATE; SEGMENTED NEUTROPHILS % 64 % (40-70)
[2021-08-04] MEDS: HEPARIN 5,000 UNIT VIAL IJ SCH (11:31)
[2021-08-04 12:20] LABS: CREATININE 2.8 mg/dL (0.5-1.5); POTASSIUM 3.6 mmol/L (3.5-5.1)
[2021-08-04] MEDS: AMLODIPINE 5 MG TAB PO SCH (13:52)
[2021-08-04] MEDS: HYDRALAZINE 25MG TABLET PO SCH (13:52)
[2021-08-04] MEDS: FAMOTIDINE 20MG TAB PO SCH (13:53)
[2021-08-04] MEDS: HEPARIN 5,000 UNIT VIAL SQ SCH (13:55)
[2021-08-20] MEDS ORDERED: GABA300S PO (21:40)
== END 2021-08-04 16:00 | disposition home or self-care (01) ==
LOC: EDH 23:04 → INTOOBSV 08-03 01:20 → EDHIP 08-03 01:20 → 4CH 08-03 08:48
PROVIDERS: ADMIT Hospitalist; ATTEND Hospitalist
DX: E87.70 Fluid overload, unspecified (principal); Z20.822 Contact with and (suspected) exposure to COVID-19; J90 Pleural effusion, not elsewhere classified; D72.829 Elevated white blood cell count, unspecified; I16.0 Hypertensive urgency; I13.2 Hypertensive heart and chronic kidney disease with heart failure and with stage 5 chronic kidney disease, or end stage renal disease; I50.33 Acute on chronic diastolic (congestive) heart failure; N18.6 End stage renal disease; D63.1 Anemia in chronic kidney disease; E11.22 Type 2 diabetes mellitus with diabetic chronic kidney disease; J44.1 Chronic obstructive pulmonary disease with (acute) exacerbation; I25.10 Atherosclerotic heart disease of native coronary artery without angina pectoris; E78.00 Pure hypercholesterolemia, unspecified; R33.8 Other retention of urine; Z86.19 Personal history of other infectious and parasitic diseases; Z87.891 Personal history of nicotine dependence; Z91.19 Patient's noncompliance with other medical treatment and regimen; Z95.5 Presence of coronary angioplasty implant and graft; Z99.2 Dependence on renal dialysis; Z79.4 Long term (current) use of insulin; Z79.899 Other long term (current) drug therapy; Z98.890 Other specified postprocedural states
CPT/HCPCS: 36415 ×3; 36600; 71045 ×2; 74176; 80048; 80053 ×2; 81001 ×2; 82435; 82550; 82803; 82947; 82948 ×7; 83036; 83605 ×2; 83690; 83735; 83880 ×2; 84100 ×2; 84132; 84295; 84484; 85018; 85025 ×2; 85610; 85730; 86704; 86706; 87040 ×2; 87077 ×2; 87088 ×2; 87186 ×2; 87340; 87635; 93005; 94640 ×3; 94660; 94664; 96372 ×2; 96374; 96375 ×2; 96376; 99285; G0378; J0360; J1644 ×5; J1815; J1940; J2185; J2270; J2405; J7070; 90935

== ENCOUNTER → 2021-10-26 | Outpatient (CLI) | payer OTHER ==
[~2021-10-26] MED LIST changes: +AEC81 PO; +AMLO-258 PO; +ATOR10 PO; +CLOP75TA14 PO; +DULO60CA45 PO; +FOLI1TAB85 PO; -GABA-529 PO; +GABA300S PO; -HYDR100T27 PO; +LABE100T7 PO; +REGADENOSON 0.4 MG/5 ML PF SYG IVP SCH; +SUCR500T PO; +TRAM50TA4 PO
== END | disposition home or self-care (01) ==
LOC: SHCH 07:36
PROVIDERS: ATTEND Internal Medicine Cardiovascular Disease
DX: I25.119 Atherosclerotic heart disease of native coronary artery with unspecified angina pectoris (principal); R06.02 Shortness of breath; I42.0 Dilated cardiomyopathy
CPT/HCPCS: 78452; 96374; 93017; J2785; A9500 ×2